=== PATIENT | female | born 1935 | race Caucasian/White ===

== ENCOUNTER 2022-04-22 11:48 | Inpatient (IN) | payer BC ==
[~2022-04-22] VITALS: Ht 160 cm; Wt 81.2 kg
[2022-04-22 11:55] VITALS: BP_SYST 211
--- NOTE | 2022-04-22 12:00 | NUR ---
Placed in room 5 . Placed on manager monitoring, blood pressure machine and pulse oximeter. To gown for exam. Side rails up. Report given to CORDELL STEWART AND CORDELL DEL RIO.
--- NOTE | 2022-04-22 12:10 | NUR ---
ER DR. COX AT THE BEDSIDE EXAMINING PT
--- NOTE | 2022-04-22 12:25 | NUR ---
MD DR COX AT BEDSIDE
[2022-04-22] MEDS ORDERED: KETOROLAC TROMETHAMINE 30 MG VIAL IM ONE (12:30)
[2022-04-22] MEDS ORDERED: cloNIDine HCL 0.1 MG TABLET ONE (13:13)
[2022-04-22] MEDS ORDERED: cloNIDine HCL 0.1 MG TABLET PO ONE ×2 (13:15→14:00)
--- NOTE | 2022-04-22 13:50 | NUR ---
PT BIB FRIEND AWAKE AND ALERT, AOX4. NO SOB OR DISTRESS. PT C/O PAIN TO LOWER BACK AND BLE. PT DENIES TRAUMA OR FALL. DENIES N/V. PT HAS HX OF HTN. PT BP 201/[address] COX NOTIFIED OF ELEVATED BP.
[2022-04-22] MEDS ORDERED: traMADol HCL HCL 50 MG TABLET (ULTRAM) PO ONE (14:00)
[2022-04-22 15:37] LABS: BASOPHILS % (AUTO) 0.2 % (0.0-2.0); EOSINOPHILS # (AUTO) 0.1 K/uL (0.0-0.4); EOSINOPHILS % (AUTO) 1.3 % (0.0-4.0); HEMATOCRIT 40.1 % (36-48); HEMOGLOBIN 13.5 g/dL (12.0-16.0); LYMPHOCYTES # (AUTO) 1.4 K/uL (1.0-5.5); LYMPHOCYTES % (AUTO) 14.1 % (20.5-51.5); MEAN CORPUSCULAR HEMOGLOBIN 31 pg (27-31); MEAN CORPUSCULAR HGB CONC 34 % (32-36); MEAN CORPUSCULAR VOLUME 92 fL (79.0-98.0); MONOCYTES # (AUTO) 0.8 K/uL (0.0-1.0); MONOCYTES % (AUTO) 8.4 % (1.7-9.3); NEUTROPHILS # (AUTO) 7.7 K/uL (1.8-7.7); PLATELET COUNT (AUTO) 218 K/uL (130-430); RED BLOOD CELL COUNT(AUTO) 4.38 MIL/uL (4.2-6.2); WHITE BLOOD COUNT (AUTO) 10.1 K/uL (4.8-10.8)
[2022-04-22 15:47] LABS: ANION GAP 8 (5-15); CALCIUM 9.9 mg/dL (8.4-11.0); CHLORIDE 105 mmol/L (98-107); CREATININE 1.04 mg/dL (0.55-1.30); GLUCOSE 109 mg/dL (70-99); POTASSIUM 3.6 mmol/L (3.5-5.1); UREA NITROGEN, BLOOD 19 mg/dL (8-21)
[2022-04-22 15:53] LABS: BILIRUBIN,URINE NEGATIVE (NEGATIVE); CLARITY/URINE SL CLOUDY (CLEAR); COLOR,URINE YELLOW (YELLOW); GLUCOSE,URINE NEGATIVE (NEGATIVE); KETONES,URINE NEGATIVE (NEGATIVE); LEUKOCYTE ESTERASE ,URINE NEGATIVE (NEGATIVE); NITRITE, URINE NEGATIVE (NEGATIVE); PROTEIN URINE TRACE (NEGATIVE); UROBILINOGEN,URINE 0.2 (0.2-1.0)
[2022-04-22 15:56] LABS: ALANINE AMINOTRANSFERASE 13 U/L (12-78); ALBUMIN 3.8 g/dL (3.4-4.8); ASPARTATE AMINOTRANSFERASE 23 U/L (10-37); TOTAL BILIRUBIN 1.3 mg/dL (0.0-1.0)
[2022-04-22 16:05] LABS: BLOOD, URINE TRACE (NEGATIVE)
[2022-04-22 16:06] LABS: BACTERIA,URINE RARE /HPF (None Seen); WBC,URINE 0-3 /HPF (0-3)
[2022-04-22 16:07] LABS: URINE AMORPHOUS PHOSPHATES 3+ /HPF (None Seen)
--- NOTE | 2022-04-22 16:12 | NUR ---
COVID SWAB OBTAINED AND TAKEN TO LAB.
--- NOTE | 2022-04-22 17:05 | NUR ---
US AT BEDSIDE
[2022-04-22] MEDS ORDERED: hydrALAZINE HCL 20 MG/ML VIAL IVP PRN (18:00)
--- NOTE | 2022-04-22 18:13 | NUR ---
Admit bed requested Patient will be admitted to care of Dr Lyon. Admitted to Tele unit. Diagnosis HTN,BACK PAIN Inpatient (Yes or No) YES Observation (Yes or No) NO Orientation concerns or request close to nursing station (Yes or No) N/A Covid Status NEGATIVE On vent or bipap N/A Isolation requirements N/A Needs a sitter N/A From Home (Yes or if No enter name of facility) YES Requires Dialysis (Yes or No) N/A Med Rec Completed (Yes of No) YES
--- NOTE | 2022-04-22 19:19 | NUR ---
Pt states he can not remember the name of her medications , states she takes clinidine 0.3 mg and a water pill (possible lasix )
[2022-04-22] MEDS: ONDANSETRON HCL 4 MG/2 ML VIAL IVP PRN ×2 (20:08→20:51)
--- NOTE | 2022-04-22 20:21 | NUR ---
Patient will be admitted to care of DR KIMBALL . Admitted to TELE unit. Will go to room 116B. Belongings list completed. Complete and up to date summary report printed. SBAR report to be given at bedside with opportunity for questions.
--- NOTE | 2022-04-22 20:30 | NUR ---
ADMISSION NOTE Received patient from ER via gurney. Patient admitted with diagnosis of HTN AND BACK PAIN. Patient is awake, alert, oriented X 4. Patient oriented to hospital room, call light, toileting, pain management and safety-teach back done. Patient informed that CORDELL Huertas will be the nurse and that their room number is 116B. Personal belongings checked and Belongings List documented. Call light within reach.
[2022-04-22] MEDS: HYDROcodone/ACETAMIN 7.5-325 MG TAB PO PRN (22:02)
[2022-04-22 22:21] VITALS: BP_SYST 163
[2022-04-23] VITALS (9 sets, daily range): BP systolic 134–210
[2022-04-23] MEDS ORDERED: hydrALAZINE HCL 20 MG/ML VIAL IVP PRN (01:30)
[2022-04-23] MEDS: METOCLOPRAMIDE HCL 10 MG/2 ML VIAL IVP PRN ×4 (01:30→21:38)
[2022-04-23] MEDS: HYDROcodone/ACETAMIN 7.5-325 MG TAB PO PRN (04:04)
[2022-04-23] MEDS: ONDANSETRON HCL 4 MG/2 ML VIAL IVP PRN ×3 (05:17→17:56)
--- NOTE | 2022-04-23 07:45 | NUR ---
OPEN NOTE Patient in bed, NC on 2 LPM. No Pain, no sob, no distress at this time. Patient very anxious and complaining of N/V at this time, prn NV medications will be given as well as HTN BP IV meds PRN. Patient IV to RFA 22g, patent and on SL. Patient A/O X 4 Swedish speaking. Patient on bedrest at this time with patton cath draining to gravity yellow urine. Will be calling MD to ask for orders for patient. All needs met at this time, bed is locked in lowest position, call light within reach. Oriented to room and call light. Will continue to monitor.
[2022-04-23] MEDS: LIDOCAINE PATCH 5% 1 EA TP SCH (08:59)
[2022-04-23] MEDS ORDERED: clonidine PO ×2 (09:02)
[2022-04-23] MEDS ORDERED: METH-373 PO (09:02)
[2022-04-23] MEDS ORDERED: FURO-150 PO (09:02)
--- NOTE | 2022-04-23 09:04 | NUR ---
medication reconciliation' SPOKE TO [facility] STAFF, VERIFIED PATIENT MEDICATION RECONCILIATION.
--- NOTE | 2022-04-23 09:40 | NUR ---
MOLD FILLER ACSW Madhuri responded to a generated Audit Associate referral. ACSW consulted with assigned ARNOLDO Hernandez who expressed concern with patient's home situation, patient and 86 year old sister Allie reside alone. ACSW met with patient at bedside. ACSW completed introductions, reason for referral, provided business card, and patient was open to contact. Patient was sitting up in bed complaining of nausea and "not feeling well". Patient appeared to be experiencing heightened anxiety. Due to patient's symptoms, ARNOLDO Hernandez provided support during Social Work contact. SOCIAL- Patient currently resides with her younger 86 year old sister Allie Johnson . She has a friend/neighbor Khadijah cell: home: . She denies any additional family members. Patient shares Khadijah provides support with obtaining groceries/personal care needs and support/transportation with doctors appointments. Mental Health- Patient denies history of mental health diagnosis. ACSW inquired into anxiety history, patient shared she felt anxious because she's in the hospital. Medical- Patient shared her PCP is Dr. Isidro . She shared her PCP previously set her up with temporary home health nurse, but was unable to provide further details at this time Nurse and ACSW guided patient with deep breathing exercises to address her anxiety symptoms. After initial contact, patient's friend Khadijah was seen walking into room. ACSW received permission from patient to discuss discharge needs with her. She shared she provides support as needed to patient and her sister. She also requested home health nursing 5 days week. ACSW provided brief explanation of "skilled need", case management and physician's role in discharge planning. ACSW will continue to be available as needed
[2022-04-23] MEDS ORDERED: D5/0.45 NS 1,000 ML IV SCH (11:15)
[2022-04-23] MEDS ORDERED: NITROGLYCERIN 0.4 MG TAB.SUBL SL PRN (11:15)
[2022-04-23] MEDS ORDERED: FUROSEMIDE 20 MG/2 ML VIAL IVP ONE (11:45)
[2022-04-23] MEDS ORDERED: cloNIDine HCL 0.1 MG TABLET PO ONE (11:45)
--- NOTE | 2022-04-23 12:00 | NUR ---
Patient Rounds Patient very anxious and nauseated, Will give medication PRN. Patient to have Abd ultrasound so we are holding lunch until after procedure.
--- NOTE | 2022-04-23 12:34 | NUR ---
0.5 MG OF ATIVAN GIVEN FOR ANXIETY
[2022-04-23] MEDS: LORazepam 2 MG/ML VIAL IV PRN ×4 (12:35→23:36)
[2022-04-23] MEDS ORDERED: CARVEDILOL 3.125 MG TABLET (COREG) PO ONE (13:15)
--- NOTE | 2022-04-23 13:26 | NUR ---
CONSULTATION PAGED0= REASON FOR CONSULTATION:CHEST PAIN WAS CONSULT CALLED?Y PERSON WHO WAS NOTIFIED:RADHA CONSULTING PHYSICIAN:ASHLEE HUERTA FOREIGN CORRESPONDENT SPECIALTY:CARDIO FOREIGN CORRESPONDENT PHONE NUMBER:[phone] REQUESTING PHYSICIAN:LETY BOWERS
[2022-04-23] MEDS: traMADol HCL HCL 50 MG TABLET (ULTRAM) PO PRN (14:58)
--- NOTE | 2022-04-23 16:15 | NUR ---
OPEN NOTE Patient in bed, NC on 2 LPM. No Pain, no sob, no distress at this time. Patient very anxious and complaining of N/V at this time, prn NV medications given. Patient IV to R hand 22g, patent and on infusion pump. Coello cath draining to gravity yellow urine. All needs met at this time, bed is locked in lowest position, call light within reach. Will continue to monitor. Addendum: 04/23/22 at 1836 by Mary Garcia LVN PATIENT ROUNDS
[2022-04-23] MEDS: cloNIDine HCL 0.1 MG TABLET PO SCH ×2 (17:20→23:23)
[2022-04-23] MEDS ORDERED: amLODIPine BESYLATE 5 MG TABLET PO ONE (18:30)
--- NOTE | 2022-04-23 18:36 | NUR ---
CLOSING NOTE Patient in bed, NC on 2 LPM. No Pain, no sob, no distress at this time. Patient resting and BP finally within normal limits: 134/60. Patient IV to R hand 22g, patent and on infusion pump. Coello cath draining to gravity yellow urine. Will be calling MD to ask for orders for patient. All needs met at this time, bed is locked in lowest position, call light within reach. Will endorse to camper assembler nurse.
[2022-04-23] MEDS ORDERED: CARVEDILOL 3.125 MG TABLET (COREG) PO SCH (21:00)
[2022-04-23] MEDS ORDERED: FUROSEMIDE 20 MG/2 ML VIAL IVP SCH (21:00)
[2022-04-24] VITALS: BP_SYST 167
[2022-04-24 01:00] VITALS: BP_SYST 141
[2022-04-24] MEDS: traMADol HCL HCL 50 MG TABLET (ULTRAM) PO PRN ×3 (03:54→18:38)
[2022-04-24] MEDS: LORazepam 2 MG/ML VIAL IV PRN (04:46)
[2022-04-24] MEDS: cloNIDine HCL 0.1 MG TABLET PO SCH ×3 (05:06→18:00)
--- NOTE | 2022-04-24 07:36 | NUR ---
CLOSING NOTES: Patient is currently in bed resting no s/s of distress is noted at this time. Chest rise is even and unlabored on RA. All current shift needs have been met. Patient continues to have high anxiety and blood pressure and HR is noted to elevate when ever patient is experiencing high anxiety. Patient had one episode where she reported Nausea and PRN was administered. Patient is currently stable at this time. Will differ further care to Estrella LANDA for continuity of care.
[2022-04-24 08:21] VITALS: BP_SYST 194
[2022-04-24] MEDS: ONDANSETRON HCL 4 MG/2 ML VIAL IVP PRN (08:33)
[2022-04-24] MEDS: LIDOCAINE PATCH 5% 1 EA TP SCH (08:34)
[2022-04-24] MEDS: hydrALAZINE HCL 20 MG/ML VIAL IVP PRN (08:37)
[2022-04-24] MEDS ORDERED: amLODIPine BESYLATE 10 MG TABLET PO SCH (09:00)
[2022-04-24] MEDS ORDERED: amLODIPine BESYLATE 5 MG TABLET PO SCH (09:00)
[2022-04-24] MEDS ORDERED: METOPROLOL TARTRATE 5 MG/5 ML VIAL IVP ONE (11:30)
[2022-04-24 11:36] VITALS: BP_SYST 168
[2022-04-24] MEDS ORDERED: METOPROLOL TARTRATE 5 MG/5 ML VIAL ONE (11:42)
[2022-04-24] MEDS ORDERED: CARVEDILOL 6.25 MG TABLET (COREG) PO ONE (11:45)
--- NOTE | 2022-04-24 11:46 | NUR ---
HIGH ALERT NOTE: Called Dr. Solorzano back at [phone] identified within the medical roster to verify physician authenticity.
[2022-04-24] MEDS: FUROSEMIDE 20 MG TABLET PO SCH (11:54)
[2022-04-24 15:41] VITALS: BP_SYST 161
[2022-04-24 19:30] VITALS: BP_SYST 166
--- NOTE | 2022-04-24 22:11 | NUR ---
CONSULTATION TEXT TO NUMBER [phone] Dexter ORR FOR CONSULT OF PALPITATIONS ORDER BY DR. CANELA CONFIRMATIONS TEXT WAS SENT BACK STATING HI. I GOT IT AND WILL BE THERE IN THE AM ALSO WANTED TO KNOW PT BP AND HEART RATE TEXTED VITALS BACK PER MELISSA LANDA 98.7 100 24 98 O2 166/115
[2022-04-24] MEDS: CARVEDILOL 6.25 MG TABLET (COREG) PO SCH (22:35)
[2022-04-25] VITALS: BP_SYST 141
[2022-04-25 03:00] VITALS: BP_SYST 159
[2022-04-25] MEDS: LORazepam 2 MG/ML VIAL IV PRN ×3 (03:10→20:25)
[2022-04-25] MEDS: cloNIDine HCL 0.1 MG TABLET PO SCH ×2 (03:12→06:00)
--- NOTE | 2022-04-25 03:27 | NUR ---
ROUNDS & PATIENT CARE Checking on pt, checking tele leads, change tele box batteries. Nurse Giovany started new IV on right hand #24 gauge. Pt agitation increasing d/t desire to walk to restroom to urinate despite acknowledging Coello catheter. Pt refused clonidine, BP 159/60 HR 90. Next dose due at 0600. Gave pt 0.5 mg ativan for anxiety.
[2022-04-25 07:29] LABS: BASOPHILS % (AUTO) 0.1 % (0.0-2.0); EOSINOPHILS % (AUTO) 0.1 % (0.0-4.0); HEMATOCRIT 40.2 % (36-48); HEMOGLOBIN 13.6 g/dL (12.0-16.0); LYMPHOCYTES # (AUTO) 1.2 K/uL (1.0-5.5); LYMPHOCYTES % (AUTO) 6.3 % (20.5-51.5); MEAN CORPUSCULAR HEMOGLOBIN 31 pg (27-31); MEAN CORPUSCULAR HGB CONC 34 % (32-36); MEAN CORPUSCULAR VOLUME 92 fL (79.0-98.0); MONOCYTES # (AUTO) 1.8 K/uL (0.0-1.0); MONOCYTES % (AUTO) 9.1 % (1.7-9.3); NEUTROPHILS # (AUTO) 16.3 K/uL (1.8-7.7); NEUTROPHILS % (AUTO) 84.4 % (40.0-70.0); PLATELET COUNT (AUTO) 203 K/uL (130-430); RED CELL DISTRIBUTION WIDTH 13.7 % (9.0-15.0); WHITE BLOOD COUNT (AUTO) 19.3 K/uL (4.8-10.8)
[2022-04-25] MEDS ORDERED: amLODIPine BESYLATE 10 MG TABLET PO SCH (09:00)
[2022-04-25 10:08] VITALS: BP_SYST 200
[2022-04-25] MEDS: FUROSEMIDE 20 MG TABLET PO SCH (10:10)
[2022-04-25] MEDS: CARVEDILOL 6.25 MG TABLET (COREG) PO SCH ×2 (10:11→21:00)
[2022-04-25] MEDS: LIDOCAINE PATCH 5% 1 EA TP SCH (10:11)
[2022-04-25] MEDS: amLODIPine BESYLATE 5 MG TABLET PO SCH (10:12)
[2022-04-25 11:23] VITALS: BP_SYST 167
[2022-04-25] MEDS: cloNIDine HCL 0.1 MG/24 HR PATCH.TDWK TD SCH (12:40)
[2022-04-25 13:31] LABS: ALANINE AMINOTRANSFERASE 22 U/L (12-78); ANION GAP 27 (5-15); ASPARTATE AMINOTRANSFERASE 28 U/L (10-37); CALCIUM 9.5 mg/dL (8.4-11.0); CHLORIDE 100 mmol/L (98-107); GLUCOSE 109 mg/dL (70-99); POTASSIUM 3.5 mmol/L (3.5-5.1); TOTAL BILIRUBIN 1.4 mg/dL (0.0-1.0); UREA NITROGEN, BLOOD 25 mg/dL (8-21)
[2022-04-25 13:32] LABS: ALBUMIN 3.1 g/dL (3.4-4.8)
--- NOTE | 2022-04-25 13:42 | NUR ---
CYTOPATHOLOGY TECHNOLOGIST DR ALLISNO WAS CALLED, RE: CRITICAL TROP LEVEL. SPOKE TO MELISSA.
--- NOTE | 2022-04-25 13:44 | NUR ---
FYI: CONSULT WITH CARDIO DR Vanessa ORR WAS CANCELLED. DR ALLISON IS ALREADY TAKING CARE OF THE PT. DR ORR WAS TEXTED AND HE IS AWARE.
[2022-04-25] MEDS ORDERED: traMADol HCL HCL 50 MG TABLET (ULTRAM) PO ONE (13:45)
[2022-04-25] MEDS: PIPERACILLIN/TAZO 2.25G/DEX-IS 50 ML IV SCH ×2 (14:03→21:00)
--- NOTE | 2022-04-25 14:49 | NUR ---
CONSULTATION PAGED/CALLED Reason for Consultation: [] leukocytosis Person Who was Notified: []Mame Consulting Physician: [] Dr. Rubi Advice Clerk Specialty: []Infectious Ordering Physician: []Dr. Ochoa
[2022-04-25] MEDS ORDERED: METOPROLOL TARTRATE 5 MG/5 ML VIAL IVP ONE (16:30)
[2022-04-25] MEDS: cloNIDine HCL 0.1 MG TABLET PO PRN (16:40)
[2022-04-25] MEDS: traMADol HCL HCL 50 MG TABLET (ULTRAM) PO SCH (18:00)
[2022-04-25] MEDS: hydrALAZINE HCL 20 MG/ML VIAL IVP PRN (20:29)
[2022-04-25 20:35] VITALS: BP_SYST 207
--- NOTE | 2022-04-25 20:39 | NUR ---
Elevated BP and HR Pt was off telemonitor, went to pt room and pt was pleading for help trying to get of bed, tele box on floor and nasal cannula off. Pt was asking for clonidine because her BP was too high. Pt's anxiety was escalating and vital signs revealed BP 207/107, HR 137, Resp 28,Temp 98.5, Sat O2 on RA 77%. Pt was administered PRN medications: Apresoline 20mg IVP to reduce BP and Ativan 1mg IVP to reduce anxiety/HR.
--- NOTE | 2022-04-25 21:14 | NUR ---
PAGED PAGED DR. ALLISON AT THIS TIME FOR PATIENT'S ELEVATED HR, SPOKE TO EXCHANGE. AWAITING CALL BACK.
--- NOTE | 2022-04-25 21:45 | NUR ---
DR. SOLORZANO ORDER FOR ELEVATED HR Dr Solorzano notified of pts elevated BP and elevated and fluctuating HR. New order: Lopressor 2.5 IVP PRN Q4HR for HR above 140. Call back at [phone]. Charge nurse and Incident Response Consultant
[2022-04-25] MEDS: METOPROLOL TARTRATE 5 MG/5 ML VIAL IVP PRN (22:25)
--- NOTE | 2022-04-25 22:44 | NUR ---
HIGH ALERT NOTE: Called Dr. ALLISON back at [phone], identified within the medical roster to verify physician authenticity.
--- NOTE | 2022-04-25 22:46 | NUR ---
CONSULTATION CALLED FOR DR. BAL FOR CONSULT OF LUMBAR FRACTURE ORDER BY SPOKE WITH ELMER
[2022-04-26] VITALS: BP_SYST 161
[2022-04-26] MEDS: traMADol HCL HCL 50 MG TABLET (ULTRAM) PO SCH
--- NOTE | 2022-04-26 01:30 | NUR ---
PATIENT HR ELEVATED Pt's heart rate elevated between 160 to 180 and fluctuating. Blood pressure is 153/104, temp 96.3, O2 95% on 2L NC. Ativan 0.5 mg IVP and Lopressor 2.5 mg IVP administered. Will continue to monitor.
[2022-04-26] MEDS: LORazepam 2 MG/ML VIAL IV PRN (02:18)
[2022-04-26] MEDS: METOPROLOL TARTRATE 5 MG/5 ML VIAL IVP PRN ×2 (02:20→06:39)
[2022-04-26] MEDS: PIPERACILLIN/TAZO 2.25G/DEX-IS 50 ML IV SCH ×4 (02:28→20:49)
[2022-04-26] MEDS: hydrALAZINE HCL 20 MG/ML VIAL IVP PRN ×2 (03:09→03:43)
--- NOTE | 2022-04-26 04:13 | NUR ---
DR. ALLISON PAGED DR. ALLISON PAGED AT THIS TIME PER CHARGE NURSE REQUEST FOR TACHYCARDIA.
[2022-04-26 08:18] VITALS: BP_SYST 151
[2022-04-26 08:57] LABS: ANION GAP 7 (5-15); CALCIUM 9.8 mg/dL (8.4-11.0); CHLORIDE 97 mmol/L (98-107); GLUCOSE 155 mg/dL (70-99); UREA NITROGEN, BLOOD 34 mg/dL (8-21)
[2022-04-26] MEDS: CARVEDILOL 6.25 MG TABLET (COREG) PO SCH (09:12)
[2022-04-26] MEDS: amLODIPine BESYLATE 5 MG TABLET PO SCH (09:12)
[2022-04-26] MEDS: FUROSEMIDE 20 MG TABLET PO SCH (09:13)
[2022-04-26] MEDS: LIDOCAINE PATCH 5% 1 EA TP SCH ×2 (09:15→10:41)
[2022-04-26 09:28] LABS: POTASSIUM 2.6 mmol/L (3.5-5.1)
[2022-04-26] MEDS ORDERED: CARVEDILOL 12.5 MG TABLET (COREG) PO ONE (09:30)
[2022-04-26] MEDS ORDERED: POTASSIUM CHLORIDE 40 MEQ in NS 250 ML IV ONE (09:45)
[2022-04-26] MEDS ORDERED: DILTIAZEM HCL 30 MG TABLET PO ONE (09:45)
[2022-04-26] MEDS ORDERED: MAGNESIUM SULFATE 50 ML IV ONE (10:00)
[2022-04-26] MEDS: POTASSIUM CHLORIDE 20 mEq in 100 mL (PREMIX) 100 ML x 2 doses IV SCH ×2 (10:37→13:19)
[2022-04-26 11:10] VITALS: BP_SYST 142
[2022-04-26] MEDS: DILTIAZEM HCL 30 MG TABLET PO SCH ×2 (13:23→21:15)
[2022-04-26 13:40] VITALS: BP_SYST 143
[2022-04-26] MEDS ORDERED: DILTIAZEM HCL 30 MG TABLET PO SCH (14:00)
[2022-04-26 14:24] LABS: BASOPHILS # (AUTO) 0.1 K/uL (0.0-0.2); BASOPHILS % (AUTO) 0.5 % (0.0-2.0); EOSINOPHILS % (AUTO) 0.1 % (0.0-4.0); HEMATOCRIT 44.1 % (36-48); LYMPHOCYTES # (AUTO) 1.2 K/uL (1.0-5.5); LYMPHOCYTES % (AUTO) 5.4 % (20.5-51.5); MEAN CORPUSCULAR HEMOGLOBIN 31 pg (27-31); MEAN CORPUSCULAR HGB CONC 34 % (32-36); MEAN CORPUSCULAR VOLUME 91 fL (79.0-98.0); MONOCYTES # (AUTO) 1.7 K/uL (0.0-1.0); MONOCYTES % (AUTO) 7.4 % (1.7-9.3); NEUTROPHILS # (AUTO) 19.4 K/uL (1.8-7.7); NEUTROPHILS % (AUTO) 86.6 % (40.0-70.0); PLATELET COUNT (AUTO) 239 K/uL (130-430); RED BLOOD CELL COUNT(AUTO) 4.83 MIL/uL (4.2-6.2); WHITE BLOOD COUNT (AUTO) 22.4 K/uL (4.8-10.8)
--- NOTE | 2022-04-26 15:31 | NUR ---
HOLD PT EVAL AND TREAT TODAY PER RN.
[2022-04-26 16:00] VITALS: BP_SYST 129
[2022-04-26 18:32] LABS: CALCIUM 9.3 mg/dL (8.4-11.0); CHLORIDE 99 mmol/L (98-107); CREATININE 0.94 mg/dL (0.55-1.30); GLUCOSE 152 mg/dL (70-99); UREA NITROGEN, BLOOD 36 mg/dL (8-21)
[2022-04-26 18:34] LABS: ANION GAP < 3 (5-15); POTASSIUM 2.9 mmol/L (3.5-5.1)
--- NOTE | 2022-04-26 18:46 | NUR ---
Lab called to report patient potassium of 2.9. Doctor paged, waiting for a call back.
[2022-04-26] MEDS: KCL 20 mEq in 100 mL (PREMIX) 100 ML IV SCH ×2 (20:41→23:31)
[2022-04-26] MEDS: CARVEDILOL 12.5 MG TABLET (COREG) PO SCH (20:46)
--- NOTE | 2022-04-26 23:36 | NUR ---
PATIENT REPOSITIONED AND MADE COMFORTABLE WITH PILLOWS, SKIN CARE AND PARTIAL BED BATH GIVEN,BED PAD AND GOWN CHANGED
[2022-04-27 02:03] VITALS: BP_SYST 148
[2022-04-27] MEDS: PIPERACILLIN/TAZO 2.25G/DEX-IS 50 ML IV SCH ×4 (04:25→21:02)
[2022-04-27] MEDS: DILTIAZEM HCL 30 MG TABLET PO SCH ×3 (05:32→23:58)
[2022-04-27 08:26] LABS: ANION GAP 1 (5-15); CALCIUM 9.5 mg/dL (8.4-11.0); CHLORIDE 101 mmol/L (98-107); CREATININE 0.87 mg/dL (0.55-1.30); GLUCOSE 146 mg/dL (70-99); POTASSIUM 3.1 mmol/L (3.5-5.1)
--- NOTE | 2022-04-27 09:08 | NUR ---
Dietitian Recommendations * Dysphagia evaluation * While on a clear liquid diet, provide Ensure Clear ONS TID w/ meals (720 Kcals, 24 gm protein) * Consider bowel regimen, no BM documented this admission Please refer to nutrition assessment for details. PS, RD
[2022-04-27 09:15] LABS: UREA NITROGEN, BLOOD 38 mg/dL (8-21)
[2022-04-27] MEDS: CARVEDILOL 12.5 MG TABLET (COREG) PO SCH ×2 (09:17→21:05)
[2022-04-27] MEDS: LORazepam 2 MG/ML VIAL IV PRN (09:18)
[2022-04-27] MEDS: FUROSEMIDE 20 MG TABLET PO SCH (09:19)
[2022-04-27] MEDS: LIDOCAINE PATCH 5% 1 EA TP SCH (09:19)
[2022-04-27 12:51] VITALS: BP_SYST 141
[2022-04-27] MEDS: MICAFUNGIN SODIUM 100 MG in NS 100 ML IV SCH (13:21)
[2022-04-27] MEDS ORDERED: POTASSIUM CHLORIDE 20 MEQ TAB.PRT.SR PO ONE (13:45)
[2022-04-27 17:00] VITALS: BP_SYST 160
--- NOTE | 2022-04-27 20:23 | NUR ---
RECEIVED IN BED ASLEEP , EASILY AROUSABLE , FOLLOWS COMMAND, DENIES PAIN WHEN ASSESSED, PIV #22 STARTED TO LEFT AC(LAC) PATIENT TOLERATED PROCEDURE WELL WILL CONTINUE TO MONITOR
[2022-04-27 20:26] VITALS: BP_SYST 165
[2022-04-27] MEDS: MELATONIN 3 MG TABLET PO SCH (21:05)
[2022-04-28 00:06] VITALS: BP_SYST 154
[2022-04-28] MEDS: PIPERACILLIN/TAZO 2.25G/DEX-IS 50 ML IV SCH ×4 (02:59→21:51)
--- NOTE | 2022-04-28 03:58 | NUR ---
PATIENT EXTREMELY AGGITATED, ATTEMPTING TO CLIMB OUT OF BED AND TRYING TO PULL OUT TUBBINGS, UNABLE TO RE-ORIENT- PATIENT REFUSED TO FOLLOW COMMAND AND COMBATIVE. SKIN CARE GIVEN ,PADS AND GOWN CHANGED. REPOSITIONED AND MADE COMFORTABLE WITH PILLOWS , WILL CONTINUE TO MONITOR
[2022-04-28 04:00] VITALS: BP_SYST 162
[2022-04-28] MEDS: DILTIAZEM HCL 30 MG TABLET PO SCH ×3 (05:20→21:55)
--- NOTE | 2022-04-28 06:53 | NUR ---
WAS CALLED FOR CLARIFICATION ON THE APPLICATION OF SOFT BI. WRIST RESTRAINST ON PATIENT, DR Monse KIMBALL RE-ORDERED RESTRAINTS FOR PATIENT. BILATERAL WRIST RESTRAINTS APPLIED ORDERED ON PATIENT.
[2022-04-28 07:27] LABS: BASOPHILS % (AUTO) 0.2 % (0.0-2.0); EOSINOPHILS # (AUTO) 0.2 K/uL (0.0-0.4); EOSINOPHILS % (AUTO) 1.3 % (0.0-4.0); HEMATOCRIT 43.8 % (36-48); HEMOGLOBIN 14.8 g/dL (12.0-16.0); LYMPHOCYTES # (AUTO) 1.1 K/uL (1.0-5.5); LYMPHOCYTES % (AUTO) 7.4 % (20.5-51.5); MEAN CORPUSCULAR HEMOGLOBIN 31 pg (27-31); MEAN CORPUSCULAR HGB CONC 34 % (32-36); MEAN CORPUSCULAR VOLUME 91 fL (79.0-98.0); MONOCYTES # (AUTO) 1.8 K/uL (0.0-1.0); MONOCYTES % (AUTO) 12.4 % (1.7-9.3); NEUTROPHILS # (AUTO) 11.7 K/uL (1.8-7.7); NEUTROPHILS % (AUTO) 78.7 % (40.0-70.0); PLATELET COUNT (AUTO) 221 K/uL (130-430); RED BLOOD CELL COUNT(AUTO) 4.81 MIL/uL (4.2-6.2); RED CELL DISTRIBUTION WIDTH 14.1 % (9.0-15.0); WHITE BLOOD COUNT (AUTO) 14.8 K/uL (4.8-10.8)
[2022-04-28 08:10] LABS: ANION GAP 4 (5-15); CALCIUM 9.4 mg/dL (8.4-11.0); CHLORIDE 108 mmol/L (98-107); CREATININE 0.86 mg/dL (0.55-1.30); GLUCOSE 128 mg/dL (70-99); POTASSIUM 3.1 mmol/L (3.5-5.1); UREA NITROGEN, BLOOD 29 mg/dL (8-21)
[2022-04-28] MEDS: CARVEDILOL 12.5 MG TABLET (COREG) PO SCH ×2 (09:11→21:54)
[2022-04-28] MEDS: FUROSEMIDE 20 MG TABLET PO SCH (09:11)
[2022-04-28] MEDS: LIDOCAINE PATCH 5% 1 EA TP SCH (09:12)
[2022-04-28 09:20] VITALS: BP_SYST 152
[2022-04-28] MEDS ORDERED: KCL IV SCH (11:30)
[2022-04-28] MEDS ORDERED: D5W IV SCH (11:30)
--- NOTE | 2022-04-28 11:39 | NUR ---
CONSULTATION PAGED/CALLED Reason for Consultation: []WBC Person Who was Notified: []Mame Consulting Physician: [] Dr. Rubi Hand I Thermal Cutter Specialty: []Infectious Ordering Physician: []Dr. Ochoa
[2022-04-28] MEDS: MICAFUNGIN SODIUM 100 MG in NS 100 ML IV SCH (11:59)
[2022-04-28 12:20] VITALS: BP_SYST 150
[2022-04-28] MEDS: D5W IV SCH ×2 (14:37→22:01)
[2022-04-28] MEDS: POTASSIUM CHLORIDE IV SCH ×2 (14:37→22:01)
[2022-04-28 15:30] VITALS: BP_SYST 146
--- NOTE | 2022-04-28 15:49 | NUR ---
DME order Amrit jacob received , sent to [facility] dept for review
--- NOTE | 2022-04-28 16:01 | NUR ---
Patient was seen for OT evval/tx. Alert and cooperative, tolerate tx with 5/10 during bed mobility task training, 0/10 pain at rest. Pls. see OT eval form in chart for more detail. Waiting for Kiran back brace before pt will engage in OOB activity. Nursing notified.
[2022-04-28] MEDS: MELATONIN 3 MG TABLET PO SCH (21:59)
[2022-04-28] MEDS: ACETAMINOPHEN 325 MG TABLET PO PRN (22:05)
[2022-04-29] VITALS: BP_SYST 114
[2022-04-29] MEDS: PIPERACILLIN/TAZO 2.25G/DEX-IS 50 ML IV SCH ×4 (02:16→22:04)
[2022-04-29] MEDS: POTASSIUM CHLORIDE IV SCH ×3 (05:41→23:31)
[2022-04-29] MEDS: D5W IV SCH ×3 (05:41→23:31)
[2022-04-29] MEDS: DILTIAZEM HCL 30 MG TABLET PO SCH ×3 (05:48→21:58)
--- NOTE | 2022-04-29 07:20 | NUR ---
OPENING RECEIVED SBAR FROM NIGHT NURSE, PT IS LAYING IN BED AND AWAKE, PT ON NASAL CANNULA 2L/MIN, IV RUNNING ORDERED, BED IS LOW, LOCKED AND BED ALARM ON.
[2022-04-29 07:41] LABS: BASOPHILS % (AUTO) 0.2 % (0.0-2.0); EOSINOPHILS # (AUTO) 0.4 K/uL (0.0-0.4); EOSINOPHILS % (AUTO) 2.9 % (0.0-4.0); HEMATOCRIT 42.3 % (36-48); HEMOGLOBIN 14.3 g/dL (12.0-16.0); LYMPHOCYTES # (AUTO) 1.6 K/uL (1.0-5.5); LYMPHOCYTES % (AUTO) 11.4 % (20.5-51.5); MEAN CORPUSCULAR HEMOGLOBIN 31 pg (27-31); MEAN CORPUSCULAR HGB CONC 34 % (32-36); MEAN CORPUSCULAR VOLUME 92 fL (79.0-98.0); MONOCYTES # (AUTO) 1.7 K/uL (0.0-1.0); MONOCYTES % (AUTO) 12.5 % (1.7-9.3); PLATELET COUNT (AUTO) 206 K/uL (130-430); RED BLOOD CELL COUNT(AUTO) 4.63 MIL/uL (4.2-6.2); RED CELL DISTRIBUTION WIDTH 14.1 % (9.0-15.0); WHITE BLOOD COUNT (AUTO) 13.8 K/uL (4.8-10.8)
[2022-04-29 08:00] VITALS: BP_SYST 186
--- NOTE | 2022-04-29 08:20 | NUR ---
MD DR ALLISON BEDSIDE EXAMINING PATIENT, NEW ORDERS RECEIVED
[2022-04-29 08:30] LABS: ANION GAP 2 (5-15); CALCIUM 8.5 mg/dL (8.4-11.0); CHLORIDE 104 mmol/L (98-107); CREATININE 0.87 mg/dL (0.55-1.30); GLUCOSE 139 mg/dL (70-99); POTASSIUM 3.9 mmol/L (3.5-5.1); UREA NITROGEN, BLOOD 19 mg/dL (8-21)
[2022-04-29] MEDS: LIDOCAINE PATCH 5% 1 EA TP SCH (09:00)
[2022-04-29] MEDS: CARVEDILOL 12.5 MG TABLET (COREG) PO SCH ×2 (09:00→21:58)
[2022-04-29] MEDS: FUROSEMIDE 20 MG TABLET PO SCH (09:00)
--- NOTE | 2022-04-29 10:30 | NUR ---
MD DR CANELA BEDSIDE EXAMINING PATIENT
--- NOTE | 2022-04-29 10:42 | NUR ---
BM PATIENT INCONTINENT OF BOWEL AND BLADDER. PROVIDED ARIELLE CARE, APPLIED MOISTURE BARRIER CREAM, REPOSITIONED PATIENT, PILLOW SUPPORT
--- NOTE | 2022-04-29 10:49 | NUR ---
Amrit brace has been approved auth #[id number] will be deliver to bedside by [employer]
[2022-04-29 11:16] LABS: BASOPHILS % (AUTO) 0.2 % (0.0-2.0); EOSINOPHILS # (AUTO) 0.4 K/uL (0.0-0.4); EOSINOPHILS % (AUTO) 3.2 % (0.0-4.0); HEMATOCRIT 41.2 % (36-48); HEMOGLOBIN 13.9 g/dL (12.0-16.0); LYMPHOCYTES # (AUTO) 1.3 K/uL (1.0-5.5); LYMPHOCYTES % (AUTO) 10.3 % (20.5-51.5); MEAN CORPUSCULAR HEMOGLOBIN 31 pg (27-31); MEAN CORPUSCULAR HGB CONC 34 % (32-36); MEAN CORPUSCULAR VOLUME 91 fL (79.0-98.0); MONOCYTES # (AUTO) 1.3 K/uL (0.0-1.0); MONOCYTES % (AUTO) 10.6 % (1.7-9.3); NEUTROPHILS # (AUTO) 9.3 K/uL (1.8-7.7); NEUTROPHILS % (AUTO) 75.7 % (40.0-70.0); PLATELET COUNT (AUTO) 189 K/uL (130-430); RED BLOOD CELL COUNT(AUTO) 4.51 MIL/uL (4.2-6.2); RED CELL DISTRIBUTION WIDTH 14.3 % (9.0-15.0); WHITE BLOOD COUNT (AUTO) 12.3 K/uL (4.8-10.8)
[2022-04-29 12:30] VITALS: BP_SYST 125
--- NOTE | 2022-04-29 13:47 | NUR ---
PAGED DR CANELA FOR A MEDICATION ORDER REQUEST, SPOKE TO RANJEET OF EXCHANGE
--- NOTE | 2022-04-29 14:10 | NUR ---
SPOKE WITH DR CANELA REGARDING PATIENT GOING FOR MRI, REQUESTING SOMETHING FOR ANXIETY, NEW ORDERS RECEIVED
--- NOTE | 2022-04-29 14:18 | NUR ---
HIGH ALERT NOTE: Called Dr. CANELA back identified within the medical roster to verify physician authenticity.
[2022-04-29] MEDS ORDERED: LORazepam 2 MG/ML VIAL ONE (14:27)
[2022-04-29] MEDS ORDERED: LORazepam 2 MG/ML VIAL IVP ONE (14:30)
[2022-04-29] MEDS: MICAFUNGIN SODIUM 100 MG in NS 100 ML IV SCH (14:33)
--- NOTE | 2022-04-29 16:40 | NUR ---
paged dr Ochoa regarding patients family is upset that they have not received any updates since admission.
--- NOTE | 2022-04-29 16:55 | NUR ---
Pt. was seen for OT tx. Tolerated tx well. Tolerated Kiran brace while sitting and standing. Pls. see OT tx. notes in chart for more detail.
[2022-04-29] MEDS: traMADol HCL HCL 50 MG TABLET (ULTRAM) PO SCH (17:32)
--- NOTE | 2022-04-29 18:06 | NUR ---
PAGED DOCTOR REHANA VIA EXCHANGE,SPOKE TO AYESHA
--- NOTE | 2022-04-29 18:14 | NUR ---
SPOKE TO DR KIMBALL, ORDERS RECEIVE
[2022-04-29 18:37] VITALS: BP_SYST 123
--- NOTE | 2022-04-29 19:15 | NUR ---
CLOSING PROVIDED SBAR TO NIGHT NURSE, PATIENT IN BED, PT ON NASAL CANNULA WITH 2L/MIN, IV RUNNING ORDERED, BED IN LOW AND LOCK POSITION, ALARM BED ON
--- NOTE | 2022-04-29 20:00 | NUR ---
Patient in bed, NC on 2 LPM. No Pain, no sob, no distress at this time. Patient very anxious nd worried about o2 canula. Patient IV to RFA 22g, patent and on SL. Patient A/O X 4 Syriac speaking. Pt lungs are clear, VSS, and undertands what is needed from her. All needs met at this time, bed is locked in lowest position, call light within reach. Oriented to room and call light. Will continue to monitor.
[2022-04-29 20:29] VITALS: BP_SYST 137
[2022-04-29 20:30] VITALS: BP_SYST 137
[2022-04-29] MEDS: HEPARIN SODIUM,PORCINE 5,000 UNITS/ML VIAL SUBCUT SCH (22:00)
[2022-04-29] MEDS: MELATONIN 3 MG TABLET PO SCH (22:00)
[2022-04-30] VITALS: BP_SYST 112
[2022-04-30] MEDS: PIPERACILLIN/TAZO 2.25G/DEX-IS 50 ML IV SCH ×5 (03:13→21:07)
[2022-04-30] MEDS: DILTIAZEM HCL 30 MG TABLET PO SCH (06:21)
[2022-04-30] MEDS: traMADol HCL HCL 50 MG TABLET (ULTRAM) PO SCH ×5 (06:22→23:53)
[2022-04-30 07:08] LABS: ANION GAP 8 (5-15); CALCIUM 8.7 mg/dL (8.4-11.0); CHLORIDE 102 mmol/L (98-107); CREATININE 0.76 mg/dL (0.55-1.30); GLUCOSE 123 mg/dL (70-99); POTASSIUM 3.7 mmol/L (3.5-5.1); UREA NITROGEN, BLOOD 16 mg/dL (8-21)
--- NOTE | 2022-04-30 07:35 | NUR ---
MORNING ROUNDS: PATIENT LYING ON BED ,SEMI ELIZALDE'S.AWAKE,ALERT AND ORIENTED X 3.IV AT RIGHT HAND,CLEAN AND DRY. CALL LIGHT WITH IN REACH. BED LOCKED AT LOWEST [id number]. BED ALARM ON. CONTINUE TO MONITOR. Addendum: 04/30/22 at 1446 by Mamie Brothers RN WITH 2L/NC,GOOD SATURATION.
[2022-04-30 07:49] LABS: BASOPHILS % (AUTO) 0.1 % (0.0-2.0); EOSINOPHILS # (AUTO) 0.9 K/uL (0.0-0.4); EOSINOPHILS % (AUTO) 6.2 % (0.0-4.0); HEMATOCRIT 41.4 % (36-48); HEMOGLOBIN 13.6 g/dL (12.0-16.0); LYMPHOCYTES # (AUTO) 1.4 K/uL (1.0-5.5); LYMPHOCYTES % (AUTO) 9.4 % (20.5-51.5); MEAN CORPUSCULAR HEMOGLOBIN 30 pg (27-31); MEAN CORPUSCULAR HGB CONC 33 % (32-36); MEAN CORPUSCULAR VOLUME 92 fL (79.0-98.0); MONOCYTES # (AUTO) 1.9 K/uL (0.0-1.0); MONOCYTES % (AUTO) 13.2 % (1.7-9.3); NEUTROPHILS # (AUTO) 10.5 K/uL (1.8-7.7); NEUTROPHILS % (AUTO) 71.1 % (40.0-70.0); PLATELET COUNT (AUTO) 215 K/uL (130-430); RED BLOOD CELL COUNT(AUTO) 4.53 MIL/uL (4.2-6.2); RED CELL DISTRIBUTION WIDTH 14.1 % (9.0-15.0); WHITE BLOOD COUNT (AUTO) 14.7 K/uL (4.8-10.8)
[2022-04-30 08:20] VITALS: BP_SYST 140
[2022-04-30] MEDS: LIDOCAINE PATCH 5% 1 EA TP SCH (08:40)
[2022-04-30] MEDS: FUROSEMIDE 20 MG TABLET PO SCH (08:40)
[2022-04-30] MEDS: CARVEDILOL 12.5 MG TABLET (COREG) PO SCH ×3 (08:40→21:03)
[2022-04-30] MEDS: POTASSIUM CHLORIDE IV SCH ×2 (08:41→18:10)
[2022-04-30] MEDS: D5W IV SCH ×2 (08:41→18:10)
[2022-04-30] MEDS: HEPARIN SODIUM,PORCINE 5,000 UNITS/ML VIAL SUBCUT SCH ×2 (08:43→21:07)
--- NOTE | 2022-04-30 09:30 | NUR ---
MED PASS: PATIENT TOOK ALL HER MEDS WELL. NO PROBLEM.
[2022-04-30] MEDS: MICAFUNGIN SODIUM 100 MG in NS 100 ML IV SCH (12:28)
[2022-04-30 12:41] VITALS: BP_SYST 135
--- NOTE | 2022-04-30 13:30 | NUR ---
RN ROUNDS: PATIENT EATING LUNCH. STABLE.
[2022-04-30 14:06] LABS: HEPATITIS B SURFACE AG Negative (Negative); HEPATITIS C VIRUS AB <0.1 s/co ratio (0.0-0.9)
--- NOTE | 2022-04-30 15:06 | NUR ---
IVPB: DUE IV GIVEN ORDERED. NO PROBLEM.
[2022-04-30 16:00] VITALS: BP_SYST 138
--- NOTE | 2022-04-30 17:04 | NUR ---
Pt. was seen for OT tx, cleared by RN for OT tx. Tolerated tx well, while sitting at edge of bed and while wearing Kiran brace. Pls. see OT tx notes in chart for more detail.
--- NOTE | 2022-04-30 17:31 | NUR ---
Nutrition F/U Admitting Diagnosis: HTN, back pain Reviewed Pertinent Medical/Surgical Hx Medical Record; Patient; Primary RN Medical History Comment: PMH: essential HTN, thyroid disorder, arrythmia, cholecystectomy, hysterectomy, history of smoking, obesity. Presented with c/o N/V, abdominal discomfort, per MD note: L2 fx + lower thoracic vertebrae injury, severe back pain most likely 2/2 L2 fracture, HTN aggravated by pain. 04/29: S/p spinal MRI; found severe spinal stenosis, spondylolisthesis, and collapsed vertebra. Pt has been bed-bound multiple days per MD notes. 04/30: S/p OT tx; RD s/w OT who stated patient is improving, she tolerated sitting for 20 minutes and patient is less confused today. Subjective Information: RD rounded to patient room and spoke with patient bedside. Pt was pleasant and slightly confused. Pt reports good appetite during admission. Per EMR review, patient with improved intake: 58% average x 6 meals. This provides: ~1456 kcals and 68g protein per day. This meets daily: 92% lower end of estimated caloric needs and 92% of lower end of estimated protein needs. Pt reports enjoying foods and agreeable to daily ONS between meals for increased nutrient intake, prefers chocolate. Per EMR review, pt noted with [address] s/w RN via phone: RN reports 6 x small, slightly loose BM likely d/t abx and/or KCl [address] verbalized nutrition recommendations to RN. Current Diet Order/Nutrition Support: Cardiac, Mechanical Soft x 1 Patient/Significant Other Able to Verbalize Education Provided Not Indicated Pertinent Medications IV KCl 40 mEq, Lasix, Heparin, Piperacillin/tazobactam Pertinent Labs Drawn 04/30: improved -- K+ 3.7 WNL, glucose 123 H Height: 5 3 Weight: 179#/ 81.193 kg Body Mass Index: 31.70 kg/m2 %IBW: 155 [place]/Adjusted Body Weight: 115# (52.3 Kg) Recent Weight Change unable to assess Weight Status Obese Last BM Apr 30, 2022 Food Allergies NKFA, per patient 04/30 Skin Integrity Comment: Ender score 16: BLE: erythema and dry scab per EMR 04/30 Edema: BLE +1 pitting documented 04/29 Current % PO 04/30 Fair: 58.3% x 6 meals improved since 04/27 NEW* Estimated Energy Expenditure (kcals/day) 5833-8984 (IBW 52.8 K-35 Kcals/Kg, geriatric, obesity, wound prevention) Estimated Protein Required (g/day) 74-95 (IBW 52.8 K.4-1.8 gm pro/Kg, support healing) Estimated Fluid Required (l/day) 1.3-1.6 liters fluid/day or per MD discretion Problem/Etiology/Signs/Symptoms MODIFIED Inadequate protein-energy intake RT spinal injury; N/V AEB NPO/clear liquid diet >3 days, possible chewing/swallowing difficulty * Improving Increased risk for developing a pressure injury AEB L2 fracture with reduced mobility 2/2 severe back pain, Ender score 14 * On-going Expected Outcomes/Goals Monitor PO intake and tolerance with goal of patient consuming >85% of estimated nutrition needs, nutrition-related labs trending within acceptable range, normal GI function and skin integrity. Dietitian Recommendations * Continue cardiac, mechanical soft diet * Daily Ensure Enlive (10am; jenni -- ONS provides 350kcals, 20g protein) * Recommend daily MVI and 500mg VIT C d/t suboptimal PO, wound prevention * Consider Culturelle or bowel regimen per MD High Risk: F/U in 2-3days Follow Up By: May 03, 2022
--- NOTE | 2022-04-30 17:36 | NUR ---
Dietitian Recommendations * Continue cardiac, mechanical soft diet * Daily Ensure Enlive (10am; jenni -- ONS provides 350kcals, 20g protein) * Recommend daily MVI and 500mg VIT C d/t suboptimal PO, wound prevention * Consider Culturelle or bowel regimen per MD Please refer to nutrition F/U for details, thanks! CC, MPH, RDN
--- NOTE | 2022-04-30 18:50 | NUR ---
IV INFILTRATED: IV REMOVED FROM RIGHT HAND.DRY GAUZE APPLIED,NO BLEEDING NOTED.IV RE SITED AT LEFT HAND USING G#22,IV FLUIDS CONTINUE.
--- NOTE | 2022-04-30 19:00 | NUR ---
recieved pt awake and resting in bed ,she is on oxy 2l NC.she is not in resp distress ,IVF kcl drip in progress .
--- NOTE | 2022-04-30 19:05 | NUR ---
EVENING ROUNDS: ENDORSED TO NIGHT NURSE AMOS,PATIENT IN STABLE CONDITION.CALL LIGHT WITH IN REACH. BED LOCKED AT LOWEST POSITION.NO NEEDS THIS TIME.
[2022-04-30 20:00] VITALS: BP_SYST 160
--- NOTE | 2022-04-30 22:00 | NUR ---
SHE C/O PAIN TO RIGHT UPPER ARM AND LOWER EXTREMITIES .MEDICATED WITH ULTRAM 50 MG PO. POSITIONED TO LEFT SIDE
[2022-04-30] MEDS: MELATONIN 3 MG TABLET PO SCH (23:48)
[2022-05-01] VITALS: BP_SYST 126
[2022-05-01] MEDS: POTASSIUM CHLORIDE IV SCH ×2 (01:40→05:27)
[2022-05-01] MEDS: D5W IV SCH ×2 (01:40→05:27)
[2022-05-01 04:30] VITALS: BP_SYST 168
[2022-05-01] MEDS: traMADol HCL HCL 50 MG TABLET (ULTRAM) PO SCH ×4 (05:26→23:32)
[2022-05-01 06:28] LABS: BASOPHILS % (AUTO) 0.2 % (0.0-2.0); EOSINOPHILS # (AUTO) 0.8 K/uL (0.0-0.4); EOSINOPHILS % (AUTO) 6.2 % (0.0-4.0); HEMOGLOBIN 13.1 g/dL (12.0-16.0); LYMPHOCYTES # (AUTO) 1.6 K/uL (1.0-5.5); LYMPHOCYTES % (AUTO) 11.9 % (20.5-51.5); MEAN CORPUSCULAR HEMOGLOBIN 31 pg (27-31); MEAN CORPUSCULAR HGB CONC 34 % (32-36); MEAN CORPUSCULAR VOLUME 91 fL (79.0-98.0); MONOCYTES # (AUTO) 1.6 K/uL (0.0-1.0); MONOCYTES % (AUTO) 11.9 % (1.7-9.3); NEUTROPHILS # (AUTO) 9.4 K/uL (1.8-7.7); NEUTROPHILS % (AUTO) 69.8 % (40.0-70.0); PLATELET COUNT (AUTO) 216 K/uL (130-430); RED BLOOD CELL COUNT(AUTO) 4.27 MIL/uL (4.2-6.2); WHITE BLOOD COUNT (AUTO) 13.4 K/uL (4.8-10.8)
[2022-05-01 07:06] LABS: CALCIUM 8.9 mg/dL (8.4-11.0); CHLORIDE 102 mmol/L (98-107); CREATININE 0.85 mg/dL (0.55-1.30); GLUCOSE 115 mg/dL (70-99); POTASSIUM 4.4 mmol/L (3.5-5.1); UREA NITROGEN, BLOOD 17 mg/dL (8-21)
--- NOTE | 2022-05-01 07:06 | NUR ---
PHYSICAL THERAPY CO-SIGN The Physical Therapy Progress Notes documented by Investigations Chief have been reviewed. Reviewed/Co-Signed by: Venkata López Documentation Done by: BETHANY NAVA PTA Addendum: 05/01/22 at 0706 by Venkata López PT Amended: Links added.
[2022-05-01 07:35] LABS: ANION GAP < 3 (5-15)
[2022-05-01 09:02] VITALS: BP_SYST 156
[2022-05-01] MEDS: DILTIAZEM HCL 180 MG CAP.SR.24H PO SCH (09:05)
[2022-05-01] MEDS: FUROSEMIDE 20 MG TABLET PO SCH (09:05)
[2022-05-01] MEDS: LIDOCAINE PATCH 5% 1 EA TP SCH (09:06)
[2022-05-01] MEDS: HEPARIN SODIUM,PORCINE 5,000 UNITS/ML VIAL SUBCUT SCH ×2 (09:08→21:56)
[2022-05-01] MEDS: PIPERACILLIN/TAZO 2.25G/DEX-IS 50 ML IV SCH ×3 (09:08→21:53)
[2022-05-01] MEDS: MICAFUNGIN SODIUM 100 MG in NS 100 ML IV SCH (13:14)
[2022-05-01 16:00] VITALS: BP_SYST 161
--- NOTE | 2022-05-01 18:14 | NUR ---
Pt. was seen for OT treatment, cleared by nursing for therapy. Tolerated tx well. Denies any pain during and after tx. Tolerated wearing Mozelle back brace while sitting at edge of bed and during static/ dynamic balance activities. Pls see OT tx notes in chart for more detail. Pt. IV was pulled during functional mobility training. Nursing notified right away. Pt. was returned back in bed, fowlers position, call light within reach. O2Sat 95% at rest with O2 2 L/min via nasal canula.
[2022-05-01 20:00] VITALS: BP_SYST 202
[2022-05-01] MEDS: CARVEDILOL 12.5 MG TABLET (COREG) PO SCH (21:53)
[2022-05-01] MEDS: MELATONIN 3 MG TABLET PO SCH (21:54)
[2022-05-01] MEDS: hydrALAZINE HCL 20 MG/ML VIAL IVP PRN (21:55)
[2022-05-02 01:05] VITALS: BP_SYST 138
[2022-05-02] MEDS: traMADol HCL HCL 50 MG TABLET (ULTRAM) PO SCH ×3 (05:44→17:31)
--- NOTE | 2022-05-02 06:58 | NUR ---
PATIENT WAS IN BED RESTING. PATIENT TOOK ALL HS MEDS AND TOLERATED WELL. PATIENT C/O PAIN X2 DURING THIS SHIFT. PATIENT NEEDS ORDER FOR IVF WITH 40 MEQ K+ CLARIFIED, LAST POTASSIUM LEVEL 4.4. PATIENT L AC 22G SEEMED DIFFICULT TO FLUSH BUT SECOND NURSE FLUSHED WELL. THIS NURSE REQUEST A SECOND PIV BE PLACED (R FA 20G), AND L AC 22G STILL IN PLACE. PATIENT BEGAN YELLING OUT BUT WHEN NURSE WOULD GO IN PATIENT ROOM PATIENT HAD NO EMERGENCY AND ONCE STATED THAT SHE JUST WANTED HER SISTER'S PHONE NUMBER. THIS NURSE TO ENDORSE TO THE ON COMING SHIFT.
--- NOTE | 2022-05-02 07:10 | NUR ---
OPENING NOTE RECEIVED SBAR FROM NIGHT RN. PATIENT IN BED, RESPIRATIONS EVEN, NON LABORED. O2 NASAL CANULA 2 L. IV SALINE LOCKED. BED IN LOW AND LOCKED POSITION CALL LIGHT WITHIN REACH, BED ALARM ON
[2022-05-02 08:00] VITALS: BP_SYST 150
[2022-05-02] MEDS: POTASSIUM CHLORIDE IV SCH (09:04)
[2022-05-02] MEDS: D5W IV SCH (09:04)
[2022-05-02] MEDS: DILTIAZEM HCL 180 MG CAP.SR.24H PO SCH (09:06)
[2022-05-02] MEDS: FUROSEMIDE 20 MG TABLET PO SCH (09:07)
[2022-05-02] MEDS: CARVEDILOL 12.5 MG TABLET (COREG) PO SCH ×2 (09:07→22:07)
[2022-05-02] MEDS: HEPARIN SODIUM,PORCINE 5,000 UNITS/ML VIAL SUBCUT SCH ×2 (09:11→22:11)
[2022-05-02] MEDS: LIDOCAINE PATCH 5% 1 EA TP SCH (09:15)
--- NOTE | 2022-05-02 09:21 | NUR ---
PHARMACY CALLED PHARMACY FOR RADSYN, THEY WILL BRING UP A BAG
[2022-05-02] MEDS: PIPERACILLIN/TAZO 2.25G/DEX-IS 50 ML IV SCH ×3 (09:52→22:08)
--- NOTE | 2022-05-02 10:10 | NUR ---
INFORMED DR KIMBALL OF POTASSIUM LEVEL, OK TO DC FLUIDS
[2022-05-02] MEDS: MICAFUNGIN SODIUM 100 MG in NS 100 ML IV SCH (11:24)
[2022-05-02 11:43] VITALS: BP_SYST 131
[2022-05-02] MEDS: cloNIDine HCL 0.1 MG/24 HR PATCH.TDWK TD SCH (11:44)
--- NOTE | 2022-05-02 11:48 | NUR ---
MD DR KIMBALL BEDSIDE EXAMINING PATIENT
--- NOTE | 2022-05-02 11:53 | NUR ---
FAMILY PROVIDED DR KIMBALL WITH SISTERS NUMBER ASKED TO PLEASE CALL WITH UPDATES
--- NOTE | 2022-05-02 12:19 | NUR ---
IV LEFT IV BECAME INFILTRATED. STOPPED IVF, REMOVED IV, CATHETER INTACT. ARM MILDLY SWOLLEN. PILLOW SUPPORT AND WARM COMPRESS APPLIED
--- NOTE | 2022-05-02 12:50 | NUR ---
PRESTRESSED CONCRETE LABORER ACSW Madhuri consulted with Dr. Calhoun regarding patient's home environment and support system. ACSW informed him patient resided with her younger sister and receives daily support from friend Khadijah and neighbors in her mobile home park. ACSW will continue to be available as needed
--- NOTE | 2022-05-02 15:18 | NUR ---
nurse note patient in bed, respirations even, non labored. 2l O2 nasal canula. Bed in low and locked position call light within reach, bed alarm on. call light within reach
--- NOTE | 2022-05-02 16:00 | NUR ---
TURNING AND REPOSITIONING ENTERED INCORRECT POSITION, PATIENT IS NOT A SELF FRANCISCO, LEFT SIDE
--- NOTE | 2022-05-02 16:15 | NUR ---
left arm no longer swollen, no longer red. patient denies any pain or discomfort. Capillary refill less than 3 seconds
[2022-05-02 16:52] VITALS: BP_SYST 134
--- NOTE | 2022-05-02 16:55 | NUR ---
ANXIETY INFORMED DR KIMBALL THAT IS STARTING TO EXHIBIT ANXIETY, CALLING OUT, FEELING THAT SHE CAN NOT BREATH, O2 2L NASAL CANULA, 97%, RESPIRATIONS EVEN, NON LABORED, LUNG SOUNDS CLEAR. NEW ORDERS RECEIVED.
--- NOTE | 2022-05-02 19:00 | NUR ---
CLOSING NOTE PROVIDED SBAR TO NIGHT RN, PATIENT IN BED, RESPIRATIONS EVEN, NON LABORED, 2L O2 NASAL CANULA. BED IN LOW AND LOCKED POSITION, CALL LIGHT WITHIN REACH, BED ALARM ON. ENDORSED CARE TO NIGHT RN
[2022-05-02 20:00] VITALS: BP_SYST 190
--- NOTE | 2022-05-02 20:00 | NUR ---
PM ASSESSMENT; -Pt is a/ox3, resting in bed. pt denies any chest pain,pain,sob, or any acute distress. IV site patent, no s/s any infiltration noted. Discussed poc,all safety measures, not to get OOB to use call light for assistance or if experiencing any acute distress or pain, pt verbalized understanding. fall precaution in place,bed alarmed, side rails x3,call light w/in reach. Cont to monitor pt.
[2022-05-02] MEDS: ALPRAZolam 0.25 MG TABLET PO PRN (22:08)
[2022-05-02] MEDS: ACETAMINOPHEN 325 MG TABLET PO PRN (22:08)
[2022-05-02] MEDS: CLOTRIMAZOLE/BETAMET DIPROP 15 GM TUBE TP SCH (22:08)
--- NOTE | 2022-05-02 22:08 | NUR ---
ROUNDS; -Pt is c/o generalized pain and couldn't sleep, gave Tylenol and xanax and all routine med. will reassess pain level w/in an hour. Fall precaution in place,bed alarmed, side rails x3,call light w/in reach. Cont to monitor pt.
[2022-05-02] MEDS: MELATONIN 3 MG TABLET PO SCH (22:11)
[2022-05-03 00:39] VITALS: BP_SYST 108
--- NOTE | 2022-05-03 01:05 | NUR ---
ROUNDS; -Pt is drowsy, resting in bed comfortably. No s/s any pain,sob,or any acute distress noted. Fall precaution in place,bed alarmed, side rails x3,call light w/in reach. Cont to monitor pt.
[2022-05-03] MEDS: PIPERACILLIN/TAZO 2.25G/DEX-IS 50 ML IV SCH ×4 (02:52→21:02)
--- NOTE | 2022-05-03 03:12 | NUR ---
ROUNDS; -Pt is resting in bed. IV site infiltrated, inserted new IV site of rt hand #22, good blood returns and flushed well w/ NS, no s/s any infiltration noted, wrapped with Kerlix and secured with tape. Fall precaution in place,bed alarmed, side rails x3,call light w/in reach. Cont to monitor pt.
[2022-05-03] MEDS: traMADol HCL HCL 50 MG TABLET (ULTRAM) PO SCH ×5 (05:22→23:21)
--- NOTE | 2022-05-03 06:34 | NUR ---
CLOSING NOTES; -Pt is resting in bed. No s/s any chest pain,pain,sob, or any acute distress noted. IV site patent, no s/s any infiltration noted. Purewick in place drains yellow urine output. Fall precaution in place,bed alarmed, side rails x3,call light w/in reach. Will endorse to next nurse to cont care.
[2022-05-03 08:00] VITALS: BP_SYST 165
[2022-05-03] MEDS: CLOTRIMAZOLE/BETAMET DIPROP 15 GM TUBE TP SCH ×2 (09:00→21:05)
[2022-05-03] MEDS: ALPRAZolam 0.25 MG TABLET PO PRN (09:46)
[2022-05-03] MEDS: FUROSEMIDE 20 MG TABLET PO SCH (09:47)
[2022-05-03] MEDS: LIDOCAINE PATCH 5% 1 EA TP SCH (09:48)
[2022-05-03] MEDS: CARVEDILOL 12.5 MG TABLET (COREG) PO SCH ×2 (09:48→21:02)
[2022-05-03] MEDS: DILTIAZEM HCL 180 MG CAP.SR.24H PO SCH (09:49)
[2022-05-03] MEDS: cloNIDine HCL 0.1 MG TABLET PO PRN (09:50)
[2022-05-03] MEDS: HEPARIN SODIUM,PORCINE 5,000 UNITS/ML VIAL SUBCUT SCH ×2 (09:53→21:04)
[2022-05-03 10:37] LABS: BASOPHILS % (AUTO) 0.2 % (0.0-2.0); EOSINOPHILS # (AUTO) 0.4 K/uL (0.0-0.4); EOSINOPHILS % (AUTO) 3.4 % (0.0-4.0); HEMATOCRIT 39.7 % (36-48); HEMOGLOBIN 13.3 g/dL (12.0-16.0); LYMPHOCYTES # (AUTO) 1.6 K/uL (1.0-5.5); LYMPHOCYTES % (AUTO) 14.5 % (20.5-51.5); MEAN CORPUSCULAR HEMOGLOBIN 31 pg (27-31); MEAN CORPUSCULAR HGB CONC 34 % (32-36); MEAN CORPUSCULAR VOLUME 93 fL (79.0-98.0); MONOCYTES # (AUTO) 1.3 K/uL (0.0-1.0); MONOCYTES % (AUTO) 12.2 % (1.7-9.3); NEUTROPHILS # (AUTO) 7.5 K/uL (1.8-7.7); NEUTROPHILS % (AUTO) 69.7 % (40.0-70.0); PLATELET COUNT (AUTO) 243 K/uL (130-430); RED BLOOD CELL COUNT(AUTO) 4.29 MIL/uL (4.2-6.2); RED CELL DISTRIBUTION WIDTH 14.1 % (9.0-15.0); WHITE BLOOD COUNT (AUTO) 10.8 K/uL (4.8-10.8)
[2022-05-03 10:46] LABS: ANION GAP 4 (5-15); CALCIUM 9.1 mg/dL (8.4-11.0); CHLORIDE 104 mmol/L (98-107); CREATININE 0.94 mg/dL (0.55-1.30); GLUCOSE 130 mg/dL (70-99); POTASSIUM 3.6 mmol/L (3.5-5.1); UREA NITROGEN, BLOOD 16 mg/dL (8-21)
[2022-05-03] MEDS: MICAFUNGIN SODIUM 100 MG in NS 100 ML IV SCH (12:16)
[2022-05-03 14:03] VITALS: BP_SYST 113
--- NOTE | 2022-05-03 15:34 | NUR ---
Pt. was not seen this pm for OT tx. Pt. just woke up and wanted to eat lunch. Pt. requested to heat up her food. Nursing notified. Pt notified that we will resume OT tx on Thursday, pt agreed.
--- NOTE | 2022-05-03 15:37 | NUR ---
PATIENT WAS TOO SLEEPY TO PARTICIPATE WITH PHYSICAL THERAPY TODAY, PT ATTEMPTED 3 TIMES BUT REMAINS AT SAME STATE, RN WAS INFORMED.
[2022-05-03 17:52] VITALS: BP_SYST 135
--- NOTE | 2022-05-03 19:40 | NUR ---
PM ASSESSMENT; -Pt is a/ox3, resting in bed. pt denies any chest pain,pain,sob, or any acute distress. IV site patent, no s/s any infiltration noted. Generalized weakness noted. Discussed poc,all safety measures, to use call light for assistance or if experiencing any acute distress or pain, pt verbalized understanding. fall precaution in place,bed alarmed, side rails x3,call light w/in reach. Cont to monitor pt.
[2022-05-03] MEDS: MELATONIN 3 MG TABLET PO SCH (21:01)
--- NOTE | 2022-05-03 23:23 | NUR ---
ROUNDS; -Pt is resting in bed. Gave Ultram po upon routine scheduled. All safety measures in place. Bed alarmed, Call light w/in reach. Cont to monitor pt.
--- NOTE | 2022-05-04 | NUR ---
ROUNDS; -Pt is resting in bed comfortably. No s/s any pain,sob,or any acute distress noted. Fall precaution in place,bed alarmed, side rails x3,call light w/in reach. Cont to monitor pt.
[2022-05-04 00:26] VITALS: BP_SYST 153
[2022-05-04] MEDS: PIPERACILLIN/TAZO 2.25G/DEX-IS 50 ML IV SCH ×4 (02:11→20:55)
--- NOTE | 2022-05-04 03:57 | NUR ---
NOTES; -Pt is resting in bed comfortably. No s/s any acute distress noted. Bed alarmed, side rails x3, call light w/in reach. Cont to monitor pt.
[2022-05-04] MEDS: traMADol HCL HCL 50 MG TABLET (ULTRAM) PO SCH ×3 (06:20→17:19)
[2022-05-04 07:34] LABS: BASOPHILS % (AUTO) 0.4 % (0.0-2.0); EOSINOPHILS # (AUTO) 0.5 K/uL (0.0-0.4); EOSINOPHILS % (AUTO) 4.4 % (0.0-4.0); HEMATOCRIT 39.3 % (36-48); HEMOGLOBIN 13.3 g/dL (12.0-16.0); LYMPHOCYTES # (AUTO) 1.6 K/uL (1.0-5.5); LYMPHOCYTES % (AUTO) 14.4 % (20.5-51.5); MEAN CORPUSCULAR HEMOGLOBIN 31 pg (27-31); MEAN CORPUSCULAR HGB CONC 34 % (32-36); MEAN CORPUSCULAR VOLUME 92 fL (79.0-98.0); MONOCYTES # (AUTO) 1.2 K/uL (0.0-1.0); MONOCYTES % (AUTO) 11.2 % (1.7-9.3); NEUTROPHILS # (AUTO) 7.5 K/uL (1.8-7.7); NEUTROPHILS % (AUTO) 69.6 % (40.0-70.0); PLATELET COUNT (AUTO) 261 K/uL (130-430); RED CELL DISTRIBUTION WIDTH 13.9 % (9.0-15.0); WHITE BLOOD COUNT (AUTO) 10.8 K/uL (4.8-10.8)
[2022-05-04 07:53] LABS: ANION GAP 7 (5-15); CALCIUM 9.1 mg/dL (8.4-11.0); CHLORIDE 104 mmol/L (98-107); CREATININE 0.76 mg/dL (0.55-1.30); GLUCOSE 101 mg/dL (70-99); POTASSIUM 4.1 mmol/L (3.5-5.1); UREA NITROGEN, BLOOD 17 mg/dL (8-21)
[2022-05-04 08:00] VITALS: BP_SYST 158
[2022-05-04] MEDS: CARVEDILOL 12.5 MG TABLET (COREG) PO SCH ×2 (09:17→20:55)
[2022-05-04] MEDS: DILTIAZEM HCL 180 MG CAP.SR.24H PO SCH (09:17)
[2022-05-04] MEDS: LIDOCAINE PATCH 5% 1 EA TP SCH (09:18)
[2022-05-04] MEDS: FUROSEMIDE 20 MG TABLET PO SCH (09:18)
[2022-05-04] MEDS: CLOTRIMAZOLE/BETAMET DIPROP 15 GM TUBE TP SCH ×2 (09:18→21:00)
[2022-05-04] MEDS: HEPARIN SODIUM,PORCINE 5,000 UNITS/ML VIAL SUBCUT SCH ×2 (09:26→20:56)
[2022-05-04 11:05] VITALS: BP_SYST 127
[2022-05-04 16:00] VITALS: BP_SYST 167
[2022-05-04 16:05] VITALS: BP_SYST 167
[2022-05-04] MEDS: hydrALAZINE HCL 20 MG/ML VIAL IVP PRN (16:35)
[2022-05-04] MEDS: ALPRAZolam 0.25 MG TABLET PO PRN (18:17)
[2022-05-04] MEDS: MELATONIN 3 MG TABLET PO SCH (20:55)
[2022-05-04 22:32] VITALS: BP_SYST 164
[2022-05-05] VITALS (7 sets, daily range): BP systolic 125–196
[2022-05-05] MEDS: PIPERACILLIN/TAZO 2.25G/DEX-IS 50 ML IV SCH ×2 (02:16→08:51)
[2022-05-05 07:19] LABS: HEMATOCRIT 38.7 % (36-48); HEMOGLOBIN 13.1 g/dL (12.0-16.0); MEAN CORPUSCULAR HEMOGLOBIN 31 pg (27-31); MEAN CORPUSCULAR HGB CONC 34 % (32-36); MEAN CORPUSCULAR VOLUME 91 fL (79.0-98.0); PLATELET COUNT (AUTO) 281 K/uL (130-430); RED BLOOD CELL COUNT(AUTO) 4.24 MIL/uL (4.2-6.2); WHITE BLOOD COUNT (AUTO) 12.3 K/uL (4.8-10.8)
[2022-05-05 07:22] LABS: ANION GAP 6 (5-15); CALCIUM 9.8 mg/dL (8.4-11.0); CHLORIDE 105 mmol/L (98-107); CREATININE 0.79 mg/dL (0.55-1.30); GLUCOSE 112 mg/dL (70-99); POTASSIUM 3.8 mmol/L (3.5-5.1); UREA NITROGEN, BLOOD 16 mg/dL (8-21)
[2022-05-05] MEDS: DILTIAZEM HCL 180 MG CAP.SR.24H PO SCH (08:25)
[2022-05-05] MEDS: FUROSEMIDE 20 MG TABLET PO SCH (08:26)
[2022-05-05] MEDS: CARVEDILOL 12.5 MG TABLET (COREG) PO SCH ×2 (08:27→20:40)
[2022-05-05] MEDS: LIDOCAINE PATCH 5% 1 EA TP SCH (08:51)
[2022-05-05] MEDS: HEPARIN SODIUM,PORCINE 5,000 UNITS/ML VIAL SUBCUT SCH ×2 (08:55→20:41)
[2022-05-05] MEDS: CLOTRIMAZOLE/BETAMET DIPROP 15 GM TUBE TP SCH ×2 (08:55→20:41)
[2022-05-05 08:56] LABS: BASOPHILS % (MANUAL) 0 % (0-2); EOSINOPHILS % (MANUAL) 0 % (0-7); LYMPHOCYTES % (MANUAL) 16 % (20-46); MONOCYTES % (MANUAL) 6 % (0-11)
[2022-05-05] MEDS ORDERED: amLODIPine BESYLATE 5 MG TABLET PO SCH (09:00)
[2022-05-05] MEDS ORDERED: HYDROCORTISONE 2.5%, 30 GM TOPICAL CREAM TP PRN (11:45)
[2022-05-05] MEDS ORDERED: cephALEXin 500 MG CAPSULE PO ONE (12:00)
--- NOTE | 2022-05-05 14:45 | NUR ---
OCCUPATIONAL THERAPIST'S ASSISTANT ACSW Madhuri responded to a request for Social Service support from assigned RN Josh requesting confirmation of patient's contact to inform/update them of transfer information. ACSW confirmed patient's contacts including sister and friend Khadijah, and also directed him to review Special Education Instructor notes to confirm contact information. ACSW will continue to be available as needed
--- NOTE | 2022-05-05 15:35 | NUR ---
discharging to [facility] room [facility]B [phone] medic 1 ambulance last picker 7:00PM [phone] left message for family provided information to Sukh facility name & last picker time
--- NOTE | 2022-05-05 16:55 | NUR ---
Pt. was seen for OT treatment, cleared by nursing. Pt tolerated bed mobility task training. Static/ dynamic balance activities both in sitting and standing. Tolerated light thera ex on both UE and grooming task training while sitting at edge of bed. Denies any pain during and after tx. O2Sat 95% at room air, BP 198/82, HR 78 bpm. Pt. was returned back in bed, fowlers position, comfortable and call light within reached.Nursing notified.
[2022-05-05] MEDS ORDERED: cephALEXin 500 MG CAPSULE PO SCH (18:00)
[2022-05-05] MEDS: ALPRAZolam 0.25 MG TABLET PO PRN (19:11)
[2022-05-05] MEDS: MELATONIN 3 MG TABLET PO SCH (20:40)
[2022-05-06] MEDS ORDERED: amLODIPine BESYLATE 5 MG TABLET PO SCH (09:00)
== END 2022-05-05 23:17 | DRG 543 ==
LOC: SED 11:48 → STU 17:55 → SMU 05-02 11:27
PROVIDERS: ADMIT Internal Medicine; ATTEND Internal Medicine
DX: M48.56XA Collapsed vertebra, not elsewhere classified, lumbar region, initial encounter for fracture (principal); L03.115 Cellulitis of right lower limb; L03.116 Cellulitis of left lower limb; I10 Essential (primary) hypertension; M54.9 Dorsalgia, unspecified; E66.9 Obesity, unspecified; I49.9 Cardiac arrhythmia, unspecified; E05.90 Thyrotoxicosis, unspecified without thyrotoxic crisis or storm; Z20.822 Contact with and (suspected) exposure to COVID-19; I87.8 Other specified disorders of veins; I87.2 Venous insufficiency (chronic) (peripheral); L30.9 Dermatitis, unspecified; M19.90 Unspecified osteoarthritis, unspecified site; Z90.710 Acquired absence of both cervix and uterus; Z90.49 Acquired absence of other specified parts of digestive tract; Z87.891 Personal history of nicotine dependence; Z79.899 Other long term (current) drug therapy; Z63.4 Disappearance and death of family member; Z68.31 Body mass index [BMI] 31.0-31.9, adult
CPT/HCPCS: 36415; 70450-TC; 71045; 72100-TC; 72148; 72170-TC; 73502; 74018; 76376; 76700-TC; 80048; 80053; 81000; 82533; 83880; 84132; 84443; 84484; 85007; 85025; 85027; 85651-TC; 86140; 86706; 86803; 87040; 87340; 87536; 93005; 93306; 93970; 96372; 97110-GO; 97110-GP; 97112-GP; 97116-GP; 97530-GO; 97530-GP; 97535-GO; 99285; G0378; J0360; J1644; J1885; J1940; J2060; J2248; J2405; J2543; J2765; J3475; J3480; J3490; J7030; J7042; J7050; J7060

== ENCOUNTER → 2022-07-31 | Emergency (ER) | payer BC ==
[~2022-07-31] VITALS: Ht 160 cm; Wt 74.8 kg
[~2022-07-31] MED LIST: CEPH-548 PO; CLIN-22 PO; FURO-150 PO; METH-373 PO; NYST15CR36 TP; clonidine PO
[2022-07-31 11:39] VITALS: BP_SYST 127
== END | disposition home or self-care (01) ==
LOC: SED 11:35
DX: Z76.0 Encounter for issue of repeat prescription (principal); I10 Essential (primary) hypertension; Z79.899 Other long term (current) drug therapy
CPT/HCPCS: 99281

== ENCOUNTER 2022-10-15 02:21 | Inpatient (IN) | payer BC ==
[2022-10-15] VITALS (16 sets, daily range): BP systolic 73–151
[~2022-10-15] VITALS: Ht 160 cm; Wt 54.4 kg
--- NOTE | 2022-10-15 02:25 | NUR ---
Patient to ER bed 8 to gown for evaluation. Side rails up. Report given to Shyla LANDA(reg).
--- NOTE | 2022-10-15 02:45 | NUR ---
ER at bedside examining patient.
[2022-10-15] MEDS ORDERED: ONDANSETRON HCL 4 MG/2 ML VIAL IVP ONE (03:00)
[2022-10-15] MEDS ORDERED: MORPHINE 2 MG/ML INJ. SYRINGE IVP ONE (03:00)
[2022-10-15] MEDS ORDERED: NACL 0.9% 1,000 ML IV ONE ×2 (03:00→04:30)
[2022-10-15 03:30] LABS: HEMATOCRIT 40.9 % (36-48); HEMOGLOBIN 13.1 g/dL (12.0-16.0); MEAN CORPUSCULAR HEMOGLOBIN 29 pg (27-31); MEAN CORPUSCULAR HGB CONC 32 % (32-36); MEAN CORPUSCULAR VOLUME 92 fL (79.0-98.0); PLATELET COUNT (AUTO) 283 K/uL (130-430); RED BLOOD CELL COUNT(AUTO) 4.46 MIL/uL (4.2-6.2); RED CELL DISTRIBUTION WIDTH 16.2 % (9.0-15.0)
[2022-10-15 03:31] LABS: ANION GAP 14 (5-15); CALCIUM 9.1 mg/dL (8.4-11.0); CHLORIDE 102 mmol/L (98-107); CREATININE 1.68 mg/dL (0.55-1.30); GLUCOSE 114 mg/dL (70-99); UREA NITROGEN, BLOOD 22 mg/dL (8-21)
--- NOTE | 2022-10-15 03:35 | NUR ---
ED FR LAB CALLED IN WBC=32.P. DR. URIOSTEGUI AWARE.
[2022-10-15 03:36] LABS: ALANINE AMINOTRANSFERASE 12 U/L (12-78); ALBUMIN 2.5 g/dL (3.4-4.8); ASPARTATE AMINOTRANSFERASE 24 U/L (10-37); TOTAL BILIRUBIN 1.5 mg/dL (0.0-1.0)
[2022-10-15 03:37] LABS: WHITE BLOOD COUNT (AUTO) 32.9 K/uL (4.8-10.8)
[2022-10-15] MEDS ORDERED: dilTIAZem HCL IVP 5 MG/ML VIAL IVP ONE ×2 (03:45→04:30)
--- NOTE | 2022-10-15 03:58 | NUR ---
pt heartrate elevated 190-200 on monitor. md is aware. meds given. pt c/o sacral pain due to previous injury
--- NOTE | 2022-10-15 04:01 | NUR ---
pt has bilat lower extrem edema
[2022-10-15 04:14] LABS: THYROID STIMULATING HORMONE 1.67 uIu/mL (0.34-4.82)
[2022-10-15] MEDS ORDERED: PIPERACILLIN/TAZO 3.375 GM in NS 50 ML IV ONE (04:30)
[2022-10-15] MEDS ORDERED: VANCOMYCIN HCL 1,000 MG in NS 250 ML IV ONE (04:30)
[2022-10-15 04:31] LABS: EOSINOPHILS % (MANUAL) 0 % (0-7); LYMPHOCYTES % (MANUAL) 2 % (20-46); MONOCYTES % (MANUAL) 6 % (0-11)
[2022-10-15 04:32] LABS: BAND % (MANUAL) 7 % (0-6); BASOPHILS % (MANUAL) 0 % (0-2)
[2022-10-15] MEDS ORDERED: VANCOMYCIN HCL 1000 MG/VIAL IV ONE (04:35)
[2022-10-15] MEDS ORDERED: PIPERACILLIN/TAZOBACTAM 3.375 GM/VIAL (ZOSYN) IV ONE (04:36)
[2022-10-15 04:38] LABS: INR 1.8 (0.8-1.2); PROTHROMBIN TIME 18.2 SECS (9.5-12.5)
[2022-10-15] MEDS ORDERED: ESMOLOL HCL/SOD CL 250 ML IV PRN ×2 (05:00→06:00)
[2022-10-15] MEDS ORDERED: 0.45% NACL 1,000 ML IV SCH (06:00)
--- NOTE | 2022-10-15 06:00 | NUR ---
Admit bed requested Patient will be admitted to care of . Admitted to ICU unit. Diagnosis A-FIB RVR,CELLULITIS Inpatient (Yes or No) YES Observation (Yes or No) N Orientation concerns or request close to nursing station (Yes or No) YES Covid Status NEGATIVE On vent or bipap NO Isolation requirements NO Needs a sitter NO From Home (Yes or if No enter name of facility) YES Requires Dialysis (Yes or No) NO Med Rec Completed (Yes of No) PT CANNOT REMMEMBER ALL HER MEDICATION
--- NOTE | 2022-10-15 06:30 | NUR ---
esmolol started at 50mcg hr 150
--- NOTE | 2022-10-15 06:40 | NUR ---
esmolol 100mcg titrated up. hr 145
--- NOTE | 2022-10-15 06:48 | NUR ---
esmolol 150 mcg. heart rate 122
--- NOTE | 2022-10-15 06:50 | NUR ---
esmolol 200 mcg previous titrate was 0645 at 150 mcg
--- NOTE | 2022-10-15 07:04 | NUR ---
esmolol is stopped per md URIOSTEGUI. PT BP HAS DECREASED
[2022-10-15] MEDS ORDERED: AMIODARONE HCL 450 MG in D5W 241 ML IV SCH (07:15)
[2022-10-15] MEDS ORDERED: AMIODARONE HCL 150 MG in D5W 100 ML IV ONE (07:15)
[2022-10-15] MEDS ORDERED: AMIODARONE HCL 150 MG/3ML VIAL ONE (07:27)
--- NOTE | 2022-10-15 07:43 | NUR ---
CALLED LAB TO CONFIRM MRSA SCREENING LAB STATED IT HAS BEEN RECIVED AND SENT OFF TO BE COMPLETED AT [place]. PER PROFESSOR OF ENVIRONMENTAL STUDIES LINDA
--- NOTE | 2022-10-15 08:30 | NUR ---
PATIENT ADMITTED FROM ER, A/OX4, LEFT AC 20, RIGHT AC 20G. WALLET WITH $37 AND 4 CARDS IN IT AND 1 PAIR OF SOCKS. VANCOMYCIN RUNNING. NO OTHER FLUIDS AT THIS TIME. ESMOLOL DISCONTINUED. HEART RATE 170S AFIB WITH RVR. PAGE SENT OUT TO DR ALLISON, AWAITING ORDERS. INCONTINENT BOWEL AND BLADDER. FROM HOME. CELLULITIS BILATERAL LOWER EXTREMITIES.
--- NOTE | 2022-10-15 08:50 | NUR ---
NOTIFIED DR ALLISON OF HEART RATE IN 170S AFIB RVR. ORDERED PO METOPROLOL AND PO CLONIDINE.
[2022-10-15] MEDS ORDERED: METOPROLOL TARTRATE 25 MG TABLET PO ONE (09:00)
[2022-10-15] MEDS ORDERED: cloNIDine HCL 0.1 MG TABLET PO ONE ×2 (09:00→09:30)
[2022-10-15] MEDS: NACL 0.9% 1,000 ML IV SCH ×2 (09:13→17:56)
--- NOTE | 2022-10-15 09:15 | NUR ---
Consult was called for Dr. Blanco, s/p with Lia.
--- NOTE | 2022-10-15 09:18 | NUR ---
REPORT GIVEN TO JORDON RN FOR CONTIUNITY OF CARE. ALL QUESTIONS AND CONCERNS ADDRESSED. ALL CARE ENDORSED.
[2022-10-15] MEDS ORDERED: METOPROLOL SUCCINATE 25 MG TAB.SR.24H (TOPROL XL) PO ONE (09:30)
[2022-10-15] MEDS ORDERED: LORazepam 2 MG/ML VIAL IVP PRN (09:45)
[2022-10-15] MEDS ORDERED: NALOXONE HCL 0.4 MG/ML AMP (NARCAN) IVP PRN ×2 (09:45)
[2022-10-15] MEDS ORDERED: HYDROcodone/ACETAMIN 10-325 MG TAB PO PRN (09:45)
[2022-10-15] MEDS ORDERED: ACETAMINOPHEN 325 MG TABLET PO PRN ×2 (09:45→10:15)
[2022-10-15] MEDS ORDERED: HYDROcodone/ACETAMIN 5-325 MG TAB (NORCO/ VICODIN) PO PRN (09:45)
[2022-10-15] MEDS ORDERED: ONDANSETRON HCL 4 MG/2 ML VIAL IVP PRN (09:45)
--- NOTE | 2022-10-15 10:14 | NUR ---
Consult was called s/p with bal Yoon is industrial relations counselor.
[2022-10-15] MEDS ORDERED: METO5TAB9 PO (12:16)
[2022-10-15] MEDS ORDERED: TRAM50TA2 PO (12:16)
[2022-10-15] MEDS ORDERED: ONDA-8 TL (12:16)
[2022-10-15] MEDS ORDERED: CALMO120 TP (12:16)
[2022-10-15] MEDS ORDERED: DOCU-144 PO (12:16)
[2022-10-15] MEDS ORDERED: DIPH25CA83 PO (12:16)
[2022-10-15] MEDS ORDERED: LORA10TA7 PO (12:16)
[2022-10-15] MEDS: PIPERACILLIN/TAZOBACTAM 2.25 GM in NS 50 ML IV SCH ×2 (12:35→17:55)
--- NOTE | 2022-10-15 12:50 | NUR ---
NOTIFIED DR ALLISON OF HEART RATE OVER 150. ORDERED IVP METOPROLOL TARTRATE 2.5MG Q4HP.
--- NOTE | 2022-10-15 13:10 | NUR ---
NOTIFIED DR ALLISON OF HYPOTENSION. ORDERED ALBUMIN 25% 100ML AND 500ML BOLUS. THEN TO GIVE METOPROLOL IVP ONCE SYSTOLIC BP IS GREATER THAN 110.
[2022-10-15] MEDS ORDERED: NS 500 ML IV ONE (13:30)
[2022-10-15] MEDS: METOPROLOL TARTRATE 5 MG/5 ML VIAL IVP PRN ×2 (13:46→20:22)
[2022-10-15] MEDS ORDERED: ALBUMIN HUMAN 25% 100 ML IV ONE (14:00)
--- NOTE | 2022-10-15 14:00 | NUR ---
PANCHAL CATHETER INSERTED USING STERILE TECHNIQUE. PATIENT TOLERATED WELL, DRAINING TO GRAVITY, AND SECURED TO RIGHT LOWER EXTREMITY.
--- NOTE | 2022-10-15 15:20 | NUR ---
WOUND EVALUATION: Wound Consult received from Dr. Calhoun. Thank you, Dr. Calhoun , for the consult. Patient received in a Alida Bed, awake, alert, oriented. Patient is unable to turn independently. Ender Score is a 14. Past Medical History: hypertension, hypothyroidism, cholecystectomy, hysterectomy, paroxysmal atrial fibrillation, chronic lower extremity edema, former chronic smoker. Recent Labs: WBC 32.9, RBC 4.46, Hgb 13.1, Hct 40.9, Plt 183, BUN 22, Cr 1.68, PT 18.2, INR 1.8, Troponin 65, BNP 1110, lactic acid 5.8, albumin 2.5. Microbiology: MRSA screen pending, blood cultures pending. Intrinsic factors that delay wound healing: hypertension, former smoker, hypoalbuminemia, sepsis. Extrinsic factors that delay wound healing: Decreased mobility, poor self care. Wound Assessment: 1. Right Lower Extremity Chronic edema, present on admission. Tissue is intact, has erythema and dry scaly skin. 2. Left Lower Extremity Chronic edema, present on admission. Tissue is intact, has erythema and dry scaly skin. 3. Right Great Toe Onycholysis from unknown cause, present on admission. Nail bed tissue is intact, 100% white. No odor, no drainage. Measures 1.5 cm x 1.5 cm. Recommend: Apply thin layer of petroleum to nail bed. Wrap toe with bandage. Keep extremity elevated with pillows. Perform dressing change daily and as needed for dressing soiling or dislodgment. 4. Perineal Area MASD, present on admission. Tissue is 100% red with some areas of open skin. Recommend: Cleanse area with mild soap and water. Apply Calmoseptine to affected areas. Perform wound care daily and as needed. 5. Abdominal Folds MASD, present on admission. Tissue with erythema. Recommend: Apply Interdry cloth into folds. Change every 5 days or as needed for dressing soilage or dislodgment. Also recommend: Reposition patient every 2 hours with pillow support and off-load pressure areas with pillows for pressure re-distribution. Offload, elevate and float bilateral heels with pillows. Perform skin care and monitor skin integrity Q shift. Use moisture barrier cream on buttocks and other moisture susceptible areas QID and as needed for soiling. Place patient on a low air-loss mattress.
--- NOTE | 2022-10-15 16:15 | NUR ---
2 LOOSE STOOLS. PATIENT USES BEDPAN. PERICARE PROVIDED. PREVENTATIVE FOAM APPLIED TO SACRUM. SKIN PROTECTANT CREAM APPLIED TO PERINEUM. ANTIFUNGAL POWDER APPLIED TO ABDOMINAL FOLDS. PATIENT OFFLOADED WITH WEDGE Q2H.
--- NOTE | 2022-10-15 16:26 | NUR ---
NOTIFIED DR ALLISON THAT PATIENT HEART RATE IS IN THE HIGH 140s. ORDERED TO CONTINUE MONITORING AND IF NEEDED AFTER THE 4 HOUR PERIOD GIVE ANOTHER METOPROLOL 2.5MG IVP PER THE EXISTING PRN ORDER.
[2022-10-15 17:34] LABS: BILIRUBIN,URINE 1+ (NEGATIVE); BLOOD, URINE 1+ (NEGATIVE); COLOR,URINE YELLOW (YELLOW); GLUCOSE,URINE NEGATIVE (NEGATIVE); KETONES,URINE TRACE (NEGATIVE); LEUKOCYTE ESTERASE ,URINE TRACE (NEGATIVE); NITRITE, URINE NEGATIVE (NEGATIVE); PROTEIN URINE 2+ (NEGATIVE); UROBILINOGEN,URINE 0.2 (0.2-1.0)
[2022-10-15 17:36] LABS: CLARITY/URINE HAZY (CLEAR)
[2022-10-15 17:46] LABS: BACTERIA,URINE MODERATE /HPF (None Seen); COARSE GRANULAR CASTS,URINE 0-10 /LPF (None Seen); FINE GRANULAR CASTS,URINE 0-10 /LPF (None Seen); MUCUS,URINE 1+ /LPF (None Seen)
[2022-10-15] MEDS ORDERED: MENTHOL/ZINC OXIDE 113 GM OINT. TP PRN (18:15)
[2022-10-15] MEDS: cloNIDine HCL 0.1 MG TABLET PO SCH (20:29)
[2022-10-15] MEDS: NYSTATIN 30 GM TOPICAL CREAM TP SCH (20:29)
[2022-10-15] MEDS ORDERED: METOPROLOL TARTRATE 25 MG TABLET PO SCH ×2 (21:00)
[2022-10-15] MEDS ORDERED: cloNIDine HCL 0.1 MG TABLET PO SCH (21:00)
[2022-10-15 21:45] LABS: URINE SODIUM, RANDOM 12 mmol/L (40-220)
[2022-10-16] VITALS (17 sets, daily range): BP systolic 83–142
[2022-10-16] MEDS: PIPERACILLIN/TAZOBACTAM 2.25 GM in NS 50 ML IV SCH ×3 (00:55→12:11)
[2022-10-16] MEDS: METOPROLOL TARTRATE 5 MG/5 ML VIAL IVP PRN ×2 (01:54→13:54)
[2022-10-16 05:31] LABS: BASOPHILS % (AUTO) 0.1 % (0.0-2.0); HEMATOCRIT 37.8 % (36-48); HEMOGLOBIN 12.1 g/dL (12.0-16.0); LYMPHOCYTES # (AUTO) 1.3 K/uL (1.0-5.5); LYMPHOCYTES % (AUTO) 5.4 % (20.5-51.5); MEAN CORPUSCULAR HEMOGLOBIN 30 pg (27-31); MEAN CORPUSCULAR HGB CONC 32 % (32-36); MEAN CORPUSCULAR VOLUME 92 fL (79.0-98.0); MONOCYTES # (AUTO) 1.7 K/uL (0.0-1.0); MONOCYTES % (AUTO) 6.6 % (1.7-9.3); NEUTROPHILS % (AUTO) 87.9 % (40.0-70.0); PLATELET COUNT (AUTO) 213 K/uL (130-430); RED BLOOD CELL COUNT(AUTO) 4.09 MIL/uL (4.2-6.2); RED CELL DISTRIBUTION WIDTH 16.4 % (9.0-15.0); WHITE BLOOD COUNT (AUTO) 25.1 K/uL (4.8-10.8)
[2022-10-16 05:49] LABS: ANION GAP 9 (5-15); CHLORIDE 108 mmol/L (98-107); CREATININE 1.88 mg/dL (0.55-1.30); GLUCOSE 71 mg/dL (70-99); UREA NITROGEN, BLOOD 29 mg/dL (8-21)
[2022-10-16 05:54] LABS: ALANINE AMINOTRANSFERASE 46 U/L (12-78); ASPARTATE AMINOTRANSFERASE 84 U/L (10-37); C-REACTIVE PROTEIN QUANT 11.9 mg/dL (0-0.5); CHOLESTEROL 79 mg/dL (<200); HDL CHOLESTEROL 30 mg/dL (>55); PHOSPHORUS 4.6 mg/dL (2.7-4.5); TRIGLYCERIDES 69 mg/dL (30-150); VANCOMYCIN,RANDOM 7.7 ug/mL
[2022-10-16] MEDS: NACL 0.9% 1,000 ML IV SCH (06:09)
[2022-10-16] MEDS ORDERED: dilTIAZem HCL IVP 5 MG/ML VIAL IVP ONE (07:00)
[2022-10-16] MEDS ORDERED: NS 500 ML IV ONE (07:45)
[2022-10-16] MEDS ORDERED: ALBUMIN HUMAN 25% 50 ML IV SCH (07:45)
--- NOTE | 2022-10-16 08:00 | NUR ---
DR ALLISON ROUNDED ON PATIENT, NOTIFIED OF ELEVATED HEART RATE UP TO 170 BEATS PER MINUTE WITH HYPOTENSION AND URINE OUTPUT FOR THE NIGHT REPORTED 15ML. ORDERED TO CONTINUE MEDICATIONS ORDERED AND PROVIDE 500ML NS BOLUS AND AFTER 2 HOURS GIVE ORDERED DOSE OF ALBUMIN.
[2022-10-16] MEDS: NYSTATIN 30 GM TOPICAL CREAM TP SCH (08:25)
[2022-10-16] MEDS: cloNIDine HCL 0.1 MG TABLET PO SCH (08:25)
[2022-10-16] MEDS ORDERED: METOPROLOL TARTRATE 50 MG TABLET PO SCH (09:00)
[2022-10-16] MEDS ORDERED: AMIODARONE HCL 450 MG in D5W 241 ML IV SCH (09:00)
[2022-10-16] MEDS ORDERED: FUROSEMIDE 20 MG TABLET PO SCH (09:00)
[2022-10-16] MEDS ORDERED: methIMAzole 5 MG TABLET PO SCH (09:00)
--- NOTE | 2022-10-16 09:00 | NUR ---
SPOKE WITH DR KIRBY BRO AT 0845. NOTIFIED THAT PATIENT HAS POLST FROM [facility] SIGNED BY PATIENT. PATIENT IS CONFUSED. DR KIRBY BRO STATED THAT SINCE PATIENT IS UNABLE TO DISCUSS CODE STATUS AND CONFIRM SHE WANTS TO BE DNR/DNI THEN SHE IS A FULL CODE. DR KIRBY BRO ORDERED FOR FULL CODE STATUS.
[2022-10-16 09:09] LABS: ERYTHROCYTE SEDIMENTATION RATE < 1 MM/HR (0-20)
--- NOTE | 2022-10-16 10:32 | NUR ---
PATIENT ANSWERS A/OX3 BUT INCREASED INTERMITTENT CONFUSION. NOTIFIED RT THAT O2 MONITOR IS NOT GIVING A RELIABLE READ SO BROUGHT IN OTHER MEANS OF READING O2 BUT STILL NOT SUCCESSFUL. ABG ORDERED.
[2022-10-16] MEDS ORDERED: SODIUM BICARBONATE 8.4% JECT 50 MEQ/50 ML SYRINGE IVP ONE (11:45)
[2022-10-16] MEDS ORDERED: PHENYLEPHRINE HCL 100 MG in NS 240 ML IV PRN (11:45)
--- NOTE | 2022-10-16 11:48 | NUR ---
REPORTED ABG TO DR MUSA. NOTIFIED OF HEART RATE STILL TRENGING IN THE 150S AND BLOOD PRESSURE OF 79/61. DR MUSA ORDER TO GIVE 1 AMP OF BICARB, ALBUMIN 5% 250ML BOLUS, AND NEOSYNEPHRINE DRIP. READ BACK VERIFIED.
[2022-10-16] MEDS ORDERED: ALBUMIN HUMAN 5% 250 ML IV ONE (12:00)
[2022-10-16] MEDS ORDERED: KCL 20 mEq in 100 mL (PREMIX) 100 ML IV ONE (12:30)
[2022-10-16] MEDS ORDERED: SODIUM BICARBONATE 8.4% JECT 100 MEQ in D5W 1,000 ML IVP SCH (12:30)
[2022-10-16] MEDS ORDERED: ALBUMIN HUMAN 25% 200 ML IV ONE (12:30)
[2022-10-16] MEDS ORDERED: BUMETANIDE 0.25 MG/ML; 10 ML VIAL IVP ONE ×2 (12:45→15:00)
[2022-10-16] MEDS ORDERED: VANCOMYCIN HCL 750 MG in NS 250 ML IV SCH (14:00)
--- NOTE | 2022-10-16 14:30 | NUR ---
DR ARSHAD ROUNDED ON PATIENT ORDERED TO CHANGE ALBUMIN ORDERS TO 25% 200ML ONCE AND TO GIVE A DOSE OF BUMEX ONCE THE ALBUMIN IS COMPLETE. IN ADDITION RUN D5W WITH 2 AMPS OF BICARB. MADE AWARE TISH PATIENT HAS ONLY HAD 30ML OF FLUID OUT SINCE 0600 THIS MORNING. NOTIFIED OF K+ 3.2 AND ORDERED KRIDER 20MEQ ONCE.
[2022-10-16] MEDS ORDERED: NACL 0.9% 1,000 ML IV ONE (15:45)
--- NOTE | 2022-10-16 16:13 | NUR ---
PAGED DR MUSA TO NOTIFY OF PATIENT'S LABORED BREATHING AND USE OF ACCESSORY MUSCLES TO BREATH. AWAITING CALL BACK.
--- NOTE | 2022-10-16 16:54 | NUR ---
RT NOTES Responded to code blue, CPR in progress, Bagged pt with 100% O2 via resus. bag to mask, chest rise noted during bagging. Pt was intubated @ 1700 with 7.5 ETT, calorimetric changed to yellow, bilat. b/s/chest rise noted. ROSC @ 1701 pt to vent AC 16 450 100 +5. Vent to red outlet. Alarms are set and audible.
--- NOTE | 2022-10-16 16:54 | NUR ---
PT WITH AGONAL BREATHING, BECAME BRADYCARDIC. ONCE BEDSIDE WITH PRIMARY CORDELL GAMBLE, PT WAS APNEIC AND NO PULSE WAS PALPABLE. CODE BLUE BUTTON PUSHED AND CPR IMPLEMENTED. SEE CODE BLUE SHEET FOR MEDICATION ADMIN. ROSC ACHIEVED AT 1701 AFTER INTUBATION BY MD ROUSE FROM ER. 1750-MD ROUSE FROM ER BEDSIDE, PRONOUNCED PT . PRIMARY CORDELL GAMBLE TO CALL SISTER ON FILE FAMILY CONTACT.
--- NOTE | 2022-10-16 20:45 | NUR ---
2044 POST MORTEM CARE DONE,
--- NOTE | 2022-10-16 22:57 | NUR ---
BELONGINGS GIVEN TO SECURITY, CELLPHONE, BLACK WALLET WITH MEDICAL CARDS AND 37$ AND EYEGLASS,ORANGED SHIRT AND UNDERWEAR AND PAIR OF CAREY SOCKS
--- NOTE | 2022-10-17 12:27 | NUR ---
Lead Security Officer GANG INVESTIGATOR called pts. sister/roommate, Yari Boateng, and expressed condolences, asked if Yari needed any mortuary referrals. Yari stated she did not. GANG INVESTIGATOR asked if she had a mort. she was working with. Yari replied, I dont have any mortuaries and told her to go downtown. GANG INVESTIGATOR asked more questions. Yari stated someone from the hospital already called her and Yari told this person to send the remains to [facility], she is not claiming the body, she is an old lady and cannot make plans for the remains. There are no other contacts and there are no other living relatives, no children no other siblings.
== END 2022-10-16 17:50 | DRG 871 ==
LOC: SED 02:21 → SIC 05:52
PROVIDERS: ADMIT Internal Medicine; ATTEND Internal Medicine
PROC: 02HV33Z Insertion of Infusion Device into Superior Vena Cava, Percutaneous Approach (ICD-10-PCS; principal; 2022-10-15)
PROC: B548ZZA Ultrasonography of Superior Vena Cava, Guidance (ICD-10-PCS; 2022-10-15)
PROC: 5A12012 Performance of Cardiac Output, Single, Manual (ICD-10-PCS; 2022-10-16)
PROC: 0BH17EZ Insertion of Endotracheal Airway into Trachea, Via Natural or Artificial Opening (ICD-10-PCS; 2022-10-16)
DX: A41.9 Sepsis, unspecified organism (principal); N17.0 Acute kidney failure with tubular necrosis; R65.21 Severe sepsis with septic shock; L03.115 Cellulitis of right lower limb; L03.116 Cellulitis of left lower limb; E87.20 Acidosis, unspecified; N39.0 Urinary tract infection, site not specified; E03.9 Hypothyroidism, unspecified; F03.B0 Unspecified dementia, moderate, without behavioral disturbance, psychotic disturbance, mood disturbance, and anxiety; I11.0 Hypertensive heart disease with heart failure; I48.0 Paroxysmal atrial fibrillation; I50.9 Heart failure, unspecified; W18.30XA Fall on same level, unspecified, initial encounter; R73.9 Hyperglycemia, unspecified; E78.5 Hyperlipidemia, unspecified; Z20.822 Contact with and (suspected) exposure to COVID-19; E88.09 Other disorders of plasma-protein metabolism, not elsewhere classified; Z63.4 Disappearance and death of family member; Z74.01 Bed confinement status; Z79.899 Other long term (current) drug therapy; Z87.891 Personal history of nicotine dependence; Z90.49 Acquired absence of other specified parts of digestive tract; Z90.710 Acquired absence of both cervix and uterus; I46.9 Cardiac arrest, cause unspecified
CPT/HCPCS: 36415; 36600; 71045; 73521; 73552; 76770; 80053; 80061; 80202; 81000; 82570; 82803-TC; 83605; 83735; 83880; 84100; 84302; 84443; 84484; 85007; 85025; 85027; 85610-TC; 85651-TC; 85730-TC; 86140; 87040; 87081; 87086; 92950; 93005; 94002; 96361; 96365; 96368; 96375; 99291; J0282; J2060; J2270; J2370; J2405; J2543; J3370; J3480; J3490; J7050; J7060; P9041; P9046